=== PATIENT | male | born 1965 | race Hispanic/Latino ===

== ENCOUNTER 2018-12-23 11:55 | Inpatient (IN) | payer SELFPAY ==
[2018-12-23] MEDS ORDERED: Acetaminophen 500 MG TAB ONE (12:40)
[2018-12-23] MEDS ORDERED: Ondansetron PF 4 MG/2 ML Vial ONE (12:41)
[2018-12-23 12:48] LABS: Mean Corpuscular HGB CONC 35.2 g/dL (32.0-36.0); Mean Corpuscular Hemoglobin 29.4 pg (27.0-31.0); Mean Corpuscular Volume 83.7 fL (78.0-98.0); Mean Platelet Volume 9.6 fL (7.4-10.4); Platelet Count 196 thou/uL (130-400); RBC Distribution Width 13.6 % (11.5-14.5); Red Blood Cell (RBC) Count 4.09 mill/uL (4.70-6.10)
[2018-12-23 13:02] LABS: ALT (SGPT) 56 U/L (8-55); AST (SGOT) 85 U/L (5-34); Albumin 2.9 g/dL (3.5-5.0); Alkaline Phosphatase 188 U/L (40-150); Anion Gap 12 mmol/L (10-20); BUN (Urea Nitrogen) 47 mg/dL (8.4-25.7); Bilirubin, Total 1.1 mg/dL (0.2-1.2); Calc. Creatinine Clearance 0 mL/min (70-130); Calcium 7.9 mg/dL (7.8-10.44); Carbon Dioxide 23 mmol/L (22-29); Chloride 94 mmol/L (98-107); Estimated GFR-MDRD 26; Globulin 4.3 g/dL (2.4-3.5); Glucose 163 mg/dL (70-105); Potassium 3.7 mmol/L (3.5-5.1); Protein, Total 7.2 g/dL (6.0-8.3); Sodium 125 mmol/L (136-145)
[2018-12-23] MEDS ORDERED: Piperacillin/Tazobactam 4.5 GM VIAL ONE (13:20)
[2018-12-23 13:21] LABS: Band 15 % (5-11); Large Platelets SLIGHT; Lymphocytes 1 % (21-51); MDiff Complete? YES; Monocytes 2 % (0-10); Neutrophil 82 % (42-75); Platelet Morphology Comment Appears Adequate
--- NOTE | 2018-12-23 13:28 | RAD ---
SINGLE VIEW OF THE CHEST: Comparison: None. History: Diarrhea for the past 8 days, fever. FINDINGS: Single view of the chest shows a normal sized cardiomediastinal silhouette. There is no evidence of c onsolidation, mass, or pleural effusion. The bones are unremarkable. IMPRESSION: No evidence of acute cardiopulmonary disease. POS: [facility]
[2018-12-23] MEDS ORDERED: Vancomycin HCl 1.5 GM in Sodium Chloride 0.9% 250 ML 300 ML IVPB ONE (13:45)
[2018-12-23] MEDS ORDERED: Dextrose 50% Abboject 50 ML SYRINGE SLOW IVP PRN (15:18)
[2018-12-23] MEDS ORDERED: Dextrose 5% in Water 1,000 ML IV PRN (15:18)
[2018-12-23] MEDS ORDERED: Zolpidem Tartrate 5 MG TAB PO PRN (15:18)
[2018-12-23] MEDS ORDERED: Acetaminophen 325 MG TAB PO PRN (15:18)
[2018-12-23 15:43] LABS: Bilirubin Negative (Negative); Blood, Urine Large (Negative); Clarity CLOUDY (Clear); Glucose, Urine (Dipstick) Negative (Negative); Leukocyte Moderate (Negative); Nitrite Negative (Negative); Protein, Urine (Dipstick) 30 mg/dL (Neg-Trace); Specific Gravity, Urine 1.015 (1.002-1.036); Urobilinogen 0.2 mg/dL (0.2-1.0)
[2018-12-23 15:48] LABS: Hyaline Casts/LPF 4-6 HYALINE CAST LPF (0-3 Hyaline); Pathc Cast-AUWi Flag 0.95 (0-2.49); Squamous Epithelial 0-3 HPF (0-3)
[2018-12-23 15:49] LABS: Yeast-AUWi Flag 109.6 (0-25.0)
--- NOTE | 2018-12-23 15:56 | HP ---
PRIMARY CARE PROVIDER: [facility]. The patient referred to [facility] by [facility] [place] [facility] for diarrhea, acute kidney injury. The patient has had diarrhea for 7 days. He has had some trouble feeling weak and faint. He states he feels better now. His last episode of diarrhea was 9:30 this morning. Diarrhea episodes usually occur post meals. He denies abdominal pain, nausea, vomiting, fevers, sweats, or chills. PAST MEDICAL HISTORY: His only past medical history is diabetes mellitus, type 2. MEDICATIONS: He takes metformin 500 mg twice a day. ALLERGIES: HE HAS NO KNOWN DRUG ALLERGIES. PAST SURGICAL HISTORY: He has had surgeries to trauma on one finger. FAMILY HISTORY: His mother was . She had diabetes. SOCIAL HISTORY: . Full code status. , next of kin. He smokes 2 cigarettes a day. Drinks an occasional beer. No illicit drugs. REVIEW OF SYSTEMS: GENERAL: See present illness. No fainting. No headache. EYES: No double vision, blurred vision, or flashing of lights. EAR, NOSE, AND THROAT: No ear pain or drainage no nose bleeding. No trouble swallowing. CARDIAC: No chest pain, paroxysmal nocturnal dyspnea, or orthopnea. RESPIRATIONS: No cough, wheezing, or asthma. GASTROINTESTINAL: See present illness. No blood in his stools. GENITOURINARY: No hematuria or dysuria. MUSCULOSKELETAL: No pain or swelling in his arms or legs. NEUROLOGICAL: No strokes, seizures, or focal weakness. PSYCHIATRIC: No anxiety or depression. SKIN: No bruising, bleeding, or rash. HEME/LYMPH: No tender or swollen lymph nodes under his arms, neck, or groin. PHYSICAL EXAMINATION: GENERAL: He is an alert, pleasant, cooperative gentleman. VITAL SIGNS: Blood pressure 119/89, pulse 104, respirations 24, and temperature initially 102.1. HEAD, EYES, EARS, NOSE, AND THROAT: Revealed pupils are equal, round, and reactive to light. Extraocular movements are intact. Sclerae are white. Tympanic membranes are clear. Nose is clear. Oral mucous membranes are dry. NECK: No jugular venous distention, adenopathy, thyromegaly, or bruits. CHEST: Clear to auscultation and percussion. HEART: Had a regular rate and rhythm. First and second heart sounds are clear. There are no appreciated murmurs or gallops. ABDOMEN: Soft. Bowel sounds are normal. There is no hepatosplenomegaly. No mass. No rebound. No bruits. EXTREMITIES: Reveal no cyanosis, clubbing, or edema. PULSES: Carotid, radial, femoral, and dorsalis pedis pulses are intact. SKIN: Warm and dry without bruises or rash. HEME/LYMPH: No tender or swollen lymph nodes in the axilla, inguinal, or cervical area. IMAGING DATA: Chest x-ray; no cardiomegaly, CHF, or infiltrate reviewed by me. EKG, sinus tachycardia. No acute ST-T abnormality reviewed by me. LABORATORY DATA: CBC, remarkable, white count of 25.8 with marked left shift, hemoglobin 12.0, and platelet count of 196,000. Sodium 125, potassium 3.7, CO2 of 23, BUN 47, creatinine 2.61, blood sugar 163, bilirubin 1.1, AST 85, ALT 56, and alkaline phosphatase 188. ADMITTING DIAGNOSES: 1. Acute kidney injury. 2. Diabetes mellitus, type 2. 3. Leukocytosis. 4. Diarrhea. PLAN: 1. Accu-Cheks. 2. Hold metformin due to increased creatinine. 3. IV fluids. 4. Monitor BUN, creatinine, and CBC. 5. Stool studies. Blood cultures have been drawn at this point since he is feeling better, I am going to withhold any specific treatment. He will be placed in the hospital on observation basis. If he gets worse, he will be treated appropriately. As I said, we have stool studies in progress. Q.4 hours Accu-Cheks will be done with sliding scale and blood cultures were ordered. Job ID: [id number]
[2018-12-23 16:00] LABS: Bacteria/HPF 2+ HPF (None Seen); Yeast-All Forms None Seen HPF (None Seen)
[2018-12-23 17:30] VITALS: BMI 27.1
[2018-12-23] MEDS: Sodium Chloride 0.9% 1,000 ML IV SCH (18:00)
[2018-12-23] MEDS ORDERED: Heparin 1,000 UNITS/ML VIAL ONE (20:39)
[2018-12-24] MEDS: Ondansetron ODT 4 MG TAB PO PRN (00:35)
[2018-12-24] MEDS: Sodium Chloride 0.9% 1,000 ML IV SCH ×4 (00:40→17:00)
[2018-12-24 05:34] LABS: Anion Gap 10 mmol/L (10-20); BUN (Urea Nitrogen) 57 mg/dL (8.4-25.7); Calc. Creatinine Clearance 39 mL/min (70-130); Calcium 7.1 mg/dL (7.8-10.44); Carbon Dioxide 20 mmol/L (22-29); Chloride 104 mmol/L (98-107); Estimated GFR-MDRD 30; Glucose 144 mg/dL (70-105); Potassium 4.1 mmol/L (3.5-5.1); Sodium 130 mmol/L (136-145)
[2018-12-24 06:04] LABS: #Monocytes 1.1 thou/uL (0.11-0.59); #Neutrophils 9.6 thou/uL (1.40-6.50); %Basophils 0.1 % (0.0-1.0); %Eosinophils 0.1 % (0.0-10.0); %Lymphocytes 8.5 % (21.0-51.0); %Monocytes 9.4 % (0.0-10.0); %Neutrophils 81.9 % (42.0-75.0); Hemoglobin 8.5 g/dL (14.0-18.0); Mean Corpuscular HGB CONC 32.3 g/dL (32.0-36.0); Mean Corpuscular Hemoglobin 27.9 pg (27.0-31.0); Mean Corpuscular Volume 86.1 fL (78.0-98.0); Mean Platelet Volume 9.3 fL (7.4-10.4); Platelet Count 119 thou/uL (130-400); RBC Distribution Width 13.3 % (11.5-14.5); Red Blood Cell (RBC) Count 3.04 mill/uL (4.70-6.10); White Blood Cell (WBC) Count 11.8 thou/uL (4.8-10.8)
[2018-12-24] MEDS ORDERED: cefTRIAXone\\ROCEPHIN 2 GM in Sodium Chloride 0.9% 100 ML IVPB SCH (11:00)
--- NOTE | 2018-12-24 11:05 | PDOC.PN ---
- Subjective Encounter Start Date: 12/24/18 Encounter Start Time: 11:03 Subjective: Patient complaining of hiccups since last night. Otherwise no complaints. -: Denies any fevers. No chest pain or sob. No abdominal pain. Diarrhea has -: improved. No dysuria or hematuria. Denies lightheadedness/dizziness. - Objective Resuscitation Status - Order Detail: 12/23/18 15:15 Resuscitation Status Routine Resuscitation Status: FULL: Full Resuscitation Vital Signs & Weight: Vital Signs (12 hours) Temp Pulse Resp BP Pulse Ox 12/24/18 07:34 99.1 F 86 16 123/79 98 12/24/18 03:30 98.6 F 82 20 119/70 97 12/23/18 23:07 99.7 F H 104 H 20 123/85 98 Weight Weight 163 lb 6.4 oz I&O: 12/23/18 12/24/18 12/25/18 06:59 06:59 06:59 Intake Total 2165 Output Total 700 Balance 1465 Result Diagrams: 12/24/18 05:41 12/24/18 04:59 Additional Labs: Accuchecks 12/23/18 12/23/18 12/23/18 20:36 16:37 12:38 POC Glucose 132 H 117 H 150 H Phys Exam - Physical Examination Constitutional: NAD HEENT: PERRLA, oral pharynx no lesions Neck: no nodes, supple, full ROM Respiratory: clear to auscultation bilateral Cardiovascular: RRR Gastrointestinal: soft, non-tender, no distention, positive bowel sounds Musculoskeletal: no edema, pulses present Neurological: non-focal, normal sensation, moves all 4 limbs Psychiatric: normal affect, A&O x 3 Skin: no rash, normal turgor Dx/Plan (1) Sepsis secondary to UTI Code(s): A41.9 - SEPSIS, UNSPECIFIED ORGANISM; N39.0 - URINARY TRACT INFECTION, SITE NOT SPECIFIED Status: Acute Plan: urine cx and blood cx positive for e. coli. Started on Rocephin 2 g IV Q24 hrs. Converted to inpatient status. (2) Diabetes Code(s): E11.9 - TYPE 2 DIABETES MELLITUS WITHOUT COMPLICATIONS Status: Acute Plan: Continue ISS. Hold metformin given RUPERT. (3) RUPERT (acute kidney injury) Code(s): N17.9 - ACUTE KIDNEY FAILURE, UNSPECIFIED Status: Acute Plan: Slight improvement in Cr. BUN elevated. No sign of bleeding. Continue IVF fluids and monitor renal function. Consider renal US if no improvement +/- nephrology consult. (4) Anemia Code(s): D64.9 - ANEMIA, UNSPECIFIED Status: Acute Plan: Stool occult negative x 2. No hematuria or hematemesis. Possibly dilutional. Continue to monitor. - Plan cont current plan of care, continue antibiotics, out of bed/ambulate, DVT proph w/SCDs Discussed with Dr. Julian who agrees with plan as above. -: Check orthostatic BP. * .
[2018-12-24 11:11] LABS: Hemoglobin 8.7 g/dL (14.0-18.0)
[2018-12-24] MEDS: Benzonatate 100 MG CAP PO PRN (22:36)
[2018-12-24] MEDS ORDERED: guaiFENesin/DM ER PO SCH (22:45)
[2018-12-25] MEDS: Sodium Chloride 0.9% 1,000 ML IV SCH ×5 (00:58→23:39)
[2018-12-25 06:35] LABS: Anion Gap 11 mmol/L (10-20); BUN (Urea Nitrogen) 83 mg/dL (8.4-25.7); Calc. Creatinine Clearance 39 mL/min (70-130); Calcium 7.1 mg/dL (7.8-10.44); Carbon Dioxide 15 mmol/L (22-29); Chloride 108 mmol/L (98-107); Estimated GFR-MDRD 31; Glucose 182 mg/dL (70-105); Potassium 4.3 mmol/L (3.5-5.1); Sodium 130 mmol/L (136-145)
[2018-12-25 06:42] LABS: #Eosinphils 0.1 thou/uL (0.0-0.7); #Lymphocytes 0.9 thou/uL (1.20-3.40); #Monocytes 0.7 thou/uL (0.11-0.59); #Neutrophils 8.3 thou/uL (1.40-6.50); %Basophils 0.3 % (0.0-1.0); %Eosinophils 0.5 % (0.0-10.0); %Lymphocytes 9.3 % (21.0-51.0); %Monocytes 7.3 % (0.0-10.0); %Neutrophils 82.6 % (42.0-75.0); Mean Corpuscular HGB CONC 33.1 g/dL (32.0-36.0); Mean Corpuscular Hemoglobin 28.1 pg (27.0-31.0); Mean Platelet Volume 9.5 fL (7.4-10.4); Platelet Count 159 thou/uL (130-400); RBC Distribution Width 13.5 % (11.5-14.5); Red Blood Cell (RBC) Count 2.13 mill/uL (4.70-6.10)
[2018-12-25] MEDS ORDERED: hydrALAZINE 20 MG/ML VIAL SLOW IVP PRN (07:44)
[2018-12-25] MEDS ORDERED: Eucerin (Mineral Oil/Petrolatum,White) 30 gm Jar TOP PRN (07:44)
[2018-12-25] MEDS ORDERED: Senokot S 8.6-50 MG TAB PO PRN (07:44)
[2018-12-25] MEDS ORDERED: Artificial Tears 18 DROP/0.9 ML EA EYE PRN (07:44)
[2018-12-25] MEDS ORDERED: Loperamide HCl 2 MG CAP PO PRN (07:44)
[2018-12-25] MEDS ORDERED: Calcium Carbonate 500 MG ChewTAB PO PRN (07:44)
[2018-12-25] MEDS ORDERED: Sodium Chloride 0.65% Nasal 44 ML BOT EA NARE PRN (07:44)
[2018-12-25] MEDS ORDERED: Cepastat Lozenges 1 LOZ PO PRN (07:44)
[2018-12-25] MEDS ORDERED: Diabetic Tussin 200 MG/10 ML UDCUP PO PRN (07:44)
[2018-12-25] MEDS ORDERED: HYDROcodone/Acetaminophen 5/325 mg Tablet PO PRN (07:44)
[2018-12-25] MEDS ORDERED: Loratadine 10 MG TAB PO PRN (07:44)
[2018-12-25] MEDS ORDERED: Ondansetron PF 4 MG/2 ML Vial IVP PRN (07:44)
[2018-12-25] MEDS ORDERED: Acetaminophen 500 MG TAB PO PRN (07:44)
[2018-12-25] MEDS: Ondansetron ODT 4 MG TAB PO PRN (08:33)
[2018-12-25] MEDS: guaiFENesin/DM ER PO SCH ×2 (08:33→20:35)
[2018-12-25] MEDS: Saccharomyces boulardii 250 MG CAP PO SCH (08:33)
[2018-12-25 08:48] LABS: Iron 48 ug/dL (65-175); Iron Binding Capacity, Total 128 mcg/dL (261-462)
--- NOTE | 2018-12-25 09:46 | PDOC.PN ---
- Subjective Encounter Start Date: 12/25/18 Encounter Start Time: 09:00 Patient seen and examined. No new complaints. No overnight events - Objective Resuscitation Status - Order Detail: 12/23/18 15:15 Resuscitation Status Routine Resuscitation Status: FULL: Full Resuscitation MAR Reviewed: Yes Vital Signs & Weight: Vital Signs (12 hours) Temp Pulse Pulse Resp BP BP BP 12/25/18 09:23 98.5 F 100 20 111/69 12/25/18 07:45 98.3 F 95 20 111/72 12/25/18 07:26 12/25/18 04:00 98.5 F 95 20 100/64 12/25/18 00:00 98.4 F 82 20 103/66 Pulse Ox 12/25/18 09:23 99 12/25/18 07:45 98 12/25/18 07:26 98 12/25/18 04:00 97 12/25/18 00:00 99 Weight Weight 163 lb 6.4 oz I&O: 12/24/18 12/25/18 12/26/18 06:59 06:59 06:59 Intake Total 2165 2073 0 Output Total 700 Balance 1465 2073 0 Result Diagrams: 12/25/18 06:00 12/25/18 06:00 Additional Labs: Accuchecks 12/25/18 12/24/18 12/24/18 04:17 20:11 10:56 POC Glucose 189 H 188 H 176 H 12/23/18 16:37 POC Glucose 117 H Phys Exam - Physical Examination Constitutional: NAD HEENT: PERRLA, moist MMs, sclera anicteric Neck: no JVD, supple Respiratory: no wheezing, no rales, no rhonchi Cardiovascular: RRR, no significant murmur, no rub Gastrointestinal: soft, non-tender, no distention, positive bowel sounds Musculoskeletal: no edema, pulses present Neurological: non-focal, normal sensation, moves all 4 limbs Lymphatic: no nodes Psychiatric: normal affect, A&O x 3 Skin: no rash, normal turgor Dx/Plan (1) Acute worsening of stage 3 chronic kidney disease Code(s): N18.3 - CHRONIC KIDNEY DISEASE, STAGE 3 (MODERATE) Status: Acute (2) Bacteremia, escherichia coli Code(s): R78.81 - BACTEREMIA Status: Acute (3) Hyponatremia Code(s): E87.1 - HYPO-OSMOLALITY AND HYPONATREMIA Status: Acute (4) Sepsis secondary to UTI Code(s): A41.9 - SEPSIS, UNSPECIFIED ORGANISM; N39.0 - URINARY TRACT INFECTION, SITE NOT SPECIFIED Status: Acute (5) Sepsis with acute organ dysfunction Code(s): A41.9 - SEPSIS, UNSPECIFIED ORGANISM; R65.20 - SEVERE SEPSIS WITHOUT SEPTIC SHOCK Status: Acute (6) Anemia, normocytic normochromic Code(s): D64.9 - ANEMIA, UNSPECIFIED Status: Chronic (7) Diabetes type 2, controlled Code(s): E11.9 - TYPE 2 DIABETES MELLITUS WITHOUT COMPLICATIONS Status: Chronic - Plan cont current plan of care, continue antibiotics * medication reviewed as below * symptomatic treatment * change to meropenam * transfuse 1 unit prbc * anemia work up * repeat labs tomorrow. Review of Systems - Review of Systems ENT: negative: Ear Pain, Ear Discharge, Nose Pain, Nose Discharge, Nose Congestion, Mouth Pain, Mouth Swelling, Throat Pain, Throat Swelling, Other Respiratory: negative: Cough, Dry, Shortness of Breath, Hemoptysis, SOB with Excertion, Pleuritic Pain, Sputum, Wheezing Cardiovascular: negative: chest pain, palpitations, orthopnea, paroxysmal nocturnal dyspnea, edema, light headedness, other Gastrointestinal: negative: Nausea, Vomiting, Abdominal Pain, Diarrhea, Constipation, Melena, Hematochezia, Other Genitourinary: negative: Dysuria, Frequency, Incontinence, Hematuria, Retention , Other Musculoskeletal: negative: Neck Pain, Shoulder Pain, Arm Pain, Back Pain, Hand Pain, Leg Pain, Foot Pain, Other - Medications/Allergies Allergies/Adverse Reactions: Allergies Allergy/AdvReac Type Severity Reaction Status Date / Time No Known Allergies Allergy Unverified 12/23/18 13:41 Medications: Current Medications Acetaminophen (Tylenol) 650 mg PO Q4H PRN PRN Reason: Headache/Fever/Mild Pain (1-3) Last Admin: 12/24/18 00:35 Dose: 650 mg Acetaminophen (Tylenol) 650 mg PO Q6H PRN PRN Reason: Mild Pain (1-3) Hydrocodone Bitart/Acetaminophen ([place] 5/325) 1 tab PO Q4H PRN PRN Reason: Moderate Pain (4-6) Artificial Tears (Tears Naturale) 2 drop EA EYE PRN PRN PRN Reason: Dry Eyes Benzonatate (Tessalon) 100 mg PO TIDPRN PRN PRN Reason: Cough Last Admin: 12/24/18 22:36 Dose: 100 mg Calcium Carbonate (Tums) 1,000 mg PO Q4H PRN PRN Reason: Heartburn or Indigestion Dextrose/Water (Dextrose 50%) 25 gm SLOW IVP PRN PRN PRN Reason: Hypoglycemia Glucagon (Glucagon) 1 mg IM PRN PRN PRN Reason: Hypoglycemia Guaifenesin (Robitussin Sf) 200 mg PO Q4H PRN PRN Reason: Cough Guaifenesin/Dextromethorphan (Mucinex Dm) 1 tab PO Q12HR [facility] Last Admin: 12/25/18 08:33 Dose: 1 tab Hydralazine HCl (Apresoline) 10 mg SLOW IVP Q4H PRN PRN Reason: SBP > 180 and HR < 70 Dextrose/Water (D5w) 1,000 mls @ 0 mls/hr IV .Q0M PRN PRN Reason: Hypoglycemia Sodium Chloride (Normal Saline 0.9%) 1,000 mls @ 100 mls/hr IV .Q10H [facility] Last Admin: 12/25/18 08:33 Dose: 1,000 mls Meropenem 500 mg/ Sodium (Chloride) 100 mls @ 200 mls/hr IVPB 0000,0800,1600 [facility] Insulin Human Lispro (Humalog) 0 units SC .MILD SLIDING SCALE PRN PRN Reason: Mild Correctional Scale Loperamide HCl (Imodium) 2 mg PO PRN PRN PRN Reason: Diarrhea/Loose Stools Loratadine (Claritin) 10 mg PO DAILYPRN PRN PRN Reason: Sinus Symptoms Mineral Oil/White Petrolatum (Eucerin Cream) 0 gm TOP BIDPRN PRN PRN Reason: Dry Skin Ondansetron HCl (Zofran Odt) 4 mg PO Q6H PRN PRN Reason: Nausea/Vomiting Last Admin: 12/25/18 08:33 Dose: 4 mg Ondansetron HCl (Zofran) 4 mg IVP Q6H PRN PRN Reason: Nausea/Vomiting Pantoprazole Sodium (Protonix) 40 mg PO DAILY [facility] Last Admin: 12/25/18 08:33 Dose: 40 mg Saccharomyces Boulardii (Florastor) 250 mg PO DAILY [facility] Last Admin: 12/25/18 08:33 Dose: 250 mg Senna/Docusate Sodium (Senokot S) 2 tab PO BID PRN PRN Reason: Constipation Sodium Chloride ([place] Nasal [place] 0.65%) 0 ml EA NARE QIDPRN PRN PRN Reason: Nasal Congestion Throat Lozenges (Cepastat Lozenges) 1 len PO Q2H PRN PRN Reason: Sore Throat Zolpidem Tartrate (Ambien) 5 mg PO HSPRN PRN PRN Reason: Insomnia
[2018-12-25] MEDS: HumaLOG 300 UNITS/3 ML VIAL SC PRN ×3 (13:18→20:37)
[2018-12-25] MEDS: Meropenem 500 MG in Sodium Chloride 0.9% 100 ML IVPB SCH ×2 (16:26→23:40)
[2018-12-25 16:32] LABS: Creatinine, Urine 43.61 mg/dL (63-166)
[2018-12-25] MEDS: Benzonatate 100 MG CAP PO PRN (20:35)
[2018-12-26 06:28] LABS: #Eosinphils 0.1 thou/uL (0.0-0.7); #Monocytes 0.8 thou/uL (0.11-0.59); #Neutrophils 8.2 thou/uL (1.40-6.50); %Basophils 0.3 % (0.0-1.0); %Monocytes 8.2 % (0.0-10.0); %Neutrophils 80.6 % (42.0-75.0); Hemoglobin 6.3 g/dL (14.0-18.0); Mean Corpuscular HGB CONC 32.8 g/dL (32.0-36.0); Mean Corpuscular Hemoglobin 28.1 pg (27.0-31.0); Mean Corpuscular Volume 85.5 fL (78.0-98.0); Mean Platelet Volume 8.7 fL (7.4-10.4); Platelet Count 171 thou/uL (130-400); RBC Distribution Width 13.5 % (11.5-14.5); Red Blood Cell (RBC) Count 2.24 mill/uL (4.70-6.10); White Blood Cell (WBC) Count 10.1 thou/uL (4.8-10.8)
[2018-12-26 06:39] LABS: Anion Gap 10 mmol/L (10-20); BUN (Urea Nitrogen) 66 mg/dL (8.4-25.7); BUN/Creatinine Ratio 31.13; Calc. Creatinine Clearance 42 mL/min (70-130); Calcium 7.4 mg/dL (7.8-10.44); Carbon Dioxide 17 mmol/L (22-29); Chloride 115 mmol/L (98-107); Estimated GFR-MDRD 33; Glucose 132 mg/dL (70-105); Potassium 4.1 mmol/L (3.5-5.1); Sodium 138 mmol/L (136-145)
[2018-12-26 08:08] LABS: ALT (SGPT) 37 U/L (8-55); AST (SGOT) 39 U/L (5-34); Alkaline Phosphatase 186 U/L (40-150); Bilirubin, Direct 0.5 mg/dL (0.1-0.3); Bilirubin, Total 0.6 mg/dL (0.2-1.2)
[2018-12-26] MEDS: Saccharomyces boulardii 250 MG CAP PO SCH (08:19)
[2018-12-26] MEDS: guaiFENesin/DM ER PO SCH ×2 (08:19→20:37)
[2018-12-26] MEDS: Meropenem 500 MG in Sodium Chloride 0.9% 100 ML IVPB SCH ×2 (08:19→15:33)
[2018-12-26 08:30] LABS: HBCM Index 0.12 S/CO (0-0.79); HBSAg Index 0.38 S/CO (0-0.99); Hep A IgM AB Non-Reactive (NonReactive); Hep B Surf Ag Non-Reactive S/CO (NonReactive); Hep C IgG Ab Non-Reactive (NonReactive); Hepatitis B Core IgM Abs Non-Reactive (NonReactive)
--- NOTE | 2018-12-26 09:17 | ULT ---
ULTRASOUND ABDOMEN COMPLETE: Date: 12/26/18 INDICATION: Cirrhosis, renal failure. TECHNIQUE: Moya-scale ultrasound evaluation of the liver, gallbladder, spleen, pancreas, common bile duct, kidne ys, abdominal aorta, and inferior vena cava (IVC). FINDINGS: There is coarsening of the hepatic echotexture. Mild nodularity of the hepatic contour is present and there is perihepatic ascites. Gallbladder wall is thickened. There is pericholecystic edema. Low lev el echoes of the gallbladder may be related to gravel-like cholelithiasis and/or sludge. Common duct measures 6 mm, which is mildly enlarged. Incidental note of bilateral pleural fluid. No overt hydrone phrosis. Pancreas not reliably assessed for comment. The pump tester reports Tuttle's sign as negativ e. No focal splenic abnormality. Abdominal aorta is largely obscured from view for comment. IMPRESSION: 1. Gallbladder wall thickening and pericholecystic edema, which could relate to cholecystitis versus sequelae from hyperproteinemia. Correlate with clinical exam. 2. Cirrhotic morphology of the liver with ascites. 3. Mild dilatation of common duct. Correlate with biliary laboratory values. 4. Incidental note of pleural fluid. POS: [facility]
--- NOTE | 2018-12-26 10:16 | PDOC.PN ---
- Subjective Encounter Start Date: 12/26/18 Encounter Start Time: 09:40 Patient seen and examined. No new complaints. No overnight events - Objective Resuscitation Status - Order Detail: 12/23/18 15:15 Resuscitation Status Routine Resuscitation Status: FULL: Full Resuscitation MAR Reviewed: Yes Vital Signs & Weight: Vital Signs (12 hours) Temp Pulse Pulse Resp BP BP BP 12/26/18 10:00 98.3 F 86 20 123/76 12/26/18 08:17 12/26/18 07:25 98.6 F 90 18 130/78 12/26/18 04:00 98.2 F 89 20 113/67 12/26/18 00:00 98.2 F 102 H 20 161/78 H Pulse Ox 12/26/18 10:00 99 12/26/18 08:17 98 12/26/18 07:25 98 12/26/18 04:00 98 12/26/18 00:00 100 Weight Admit Weight 163 lb 6.4 oz Weight 163 lb 6.4 oz I&O: 12/25/18 12/26/18 12/27/18 06:59 06:59 06:59 Intake Total 2073 4048 0 Balance 2073 4048 0 Result Diagrams: 12/26/18 06:16 12/26/18 06:16 Additional Labs: Accuchecks 12/26/18 12/25/18 12/25/18 04:32 19:44 16:28 POC Glucose 136 H 239 H 198 H 12/25/18 11:23 POC Glucose 254 H Radiology Reviewed by me: Yes (abdomen US) Phys Exam - Physical Examination Constitutional: NAD HEENT: PERRLA, moist MMs, sclera anicteric Neck: no JVD, supple Respiratory: no wheezing, no rales, no rhonchi Cardiovascular: RRR, no significant murmur, no rub Gastrointestinal: soft, non-tender, no distention, positive bowel sounds Musculoskeletal: no edema, pulses present Neurological: non-focal, normal sensation Lymphatic: no nodes Psychiatric: normal affect, A&O x 3 Skin: no rash, normal turgor Dx/Plan (1) Acute worsening of stage 3 chronic kidney disease Code(s): N18.3 - CHRONIC KIDNEY DISEASE, STAGE 3 (MODERATE) Status: Acute (2) Bacteremia, escherichia coli Code(s): R78.81 - BACTEREMIA Status: Acute (3) Hyponatremia Code(s): E87.1 - HYPO-OSMOLALITY AND HYPONATREMIA Status: Acute (4) Sepsis secondary to UTI Code(s): A41.9 - SEPSIS, UNSPECIFIED ORGANISM; N39.0 - URINARY TRACT INFECTION, SITE NOT SPECIFIED Status: Acute (5) Sepsis with acute organ dysfunction Code(s): A41.9 - SEPSIS, UNSPECIFIED ORGANISM; R65.20 - SEVERE SEPSIS WITHOUT SEPTIC SHOCK Status: Acute (6) Anemia, normocytic normochromic Code(s): D64.9 - ANEMIA, UNSPECIFIED Status: Chronic (7) Diabetes type 2, controlled Code(s): E11.9 - TYPE 2 DIABETES MELLITUS WITHOUT COMPLICATIONS Status: Chronic (8) Alcoholic cirrhosis of liver Code(s): K70.30 - ALCOHOLIC CIRRHOSIS OF LIVER WITHOUT ASCITES Status: Chronic - Plan cont current plan of care, continue antibiotics * his H & H has not improved, will consult GI * US done and c/w cirrhosis * medication reviewed as below * symptomatic treatment * continue meropenam * repeat labs with culture tomorrow. Review of Systems - Review of Systems ENT: negative: Ear Pain, Ear Discharge, Nose Pain, Nose Discharge, Nose Congestion, Mouth Pain, Mouth Swelling, Throat Pain, Throat Swelling, Other Respiratory: negative: Cough, Dry, Shortness of Breath, Hemoptysis, SOB with Excertion, Pleuritic Pain, Sputum, Wheezing Cardiovascular: negative: chest pain, palpitations, orthopnea, paroxysmal nocturnal dyspnea, edema, light headedness, other Gastrointestinal: negative: Nausea, Vomiting, Abdominal Pain, Diarrhea, Constipation, Melena, Hematochezia, Other Genitourinary: negative: Dysuria, Frequency, Incontinence, Hematuria, Retention , Other Musculoskeletal: negative: Neck Pain, Shoulder Pain, Arm Pain, Back Pain, Hand Pain, Leg Pain, Foot Pain, Other - Medications/Allergies Allergies/Adverse Reactions: Allergies Allergy/AdvReac Type Severity Reaction Status Date / Time No Known Allergies Allergy Unverified 12/23/18 13:41 Medications: Current Medications Acetaminophen (Tylenol) 650 mg PO Q4H PRN PRN Reason: Headache/Fever/Mild Pain (1-3) Last Admin: 12/24/18 00:35 Dose: 650 mg Acetaminophen (Tylenol) 650 mg PO Q6H PRN PRN Reason: Mild Pain (1-3) Hydrocodone Bitart/Acetaminophen ([place] 5/325) 1 tab PO Q4H PRN PRN Reason: Moderate Pain (4-6) Artificial Tears (Tears Naturale) 2 drop EA EYE PRN PRN PRN Reason: Dry Eyes Benzonatate (Tessalon) 100 mg PO TIDPRN PRN PRN Reason: Cough Last Admin: 12/25/18 20:35 Dose: 100 mg Calcium Carbonate (Tums) 1,000 mg PO Q4H PRN PRN Reason: Heartburn or Indigestion Dextrose/Water (Dextrose 50%) 25 gm SLOW IVP PRN PRN PRN Reason: Hypoglycemia Glucagon (Glucagon) 1 mg IM PRN PRN PRN Reason: Hypoglycemia Guaifenesin (Robitussin Sf) 200 mg PO Q4H PRN PRN Reason: Cough Guaifenesin/Dextromethorphan (Mucinex Dm) 1 tab PO Q12HR [facility] Last Admin: 12/26/18 08:19 Dose: 1 tab Hydralazine HCl (Apresoline) 10 mg SLOW IVP Q4H PRN PRN Reason: SBP > 180 and HR < 70 Dextrose/Water (D5w) 1,000 mls @ 0 mls/hr IV .Q0M PRN PRN Reason: Hypoglycemia Meropenem 500 mg/ Sodium (Chloride) 100 mls @ 200 mls/hr IVPB 0000,0800,1600 [facility] Last Admin: 12/26/18 08:19 Dose: 100 mls Insulin Human Lispro (Humalog) 0 units SC .MILD SLIDING SCALE PRN PRN Reason: Mild Correctional Scale Last Admin: 12/25/18 20:37 Dose: 3 unit Loperamide HCl (Imodium) 2 mg PO PRN PRN PRN Reason: Diarrhea/Loose Stools Loratadine (Claritin) 10 mg PO DAILYPRN PRN PRN Reason: Sinus Symptoms Mineral Oil/White Petrolatum (Eucerin Cream) 0 gm TOP BIDPRN PRN PRN Reason: Dry Skin Ondansetron HCl (Zofran Odt) 4 mg PO Q6H PRN PRN Reason: Nausea/Vomiting Last Admin: 12/25/18 08:33 Dose: 4 mg Ondansetron HCl (Zofran) 4 mg IVP Q6H PRN PRN Reason: Nausea/Vomiting Pantoprazole Sodium (Protonix) 40 mg PO DAILY [facility] Last Admin: 12/26/18 08:19 Dose: 40 mg Saccharomyces Boulardii (Florastor) 250 mg PO DAILY [facility] Last Admin: 12/26/18 08:19 Dose: 250 mg Senna/Docusate Sodium (Senokot S) 2 tab PO BID PRN PRN Reason: Constipation Sodium Chloride ([place] Nasal [place] 0.65%) 0 ml EA NARE QIDPRN PRN PRN Reason: Nasal Congestion Throat Lozenges (Cepastat Lozenges) 1 len PO Q2H PRN PRN Reason: Sore Throat Zolpidem Tartrate (Ambien) 5 mg PO HSPRN PRN PRN Reason: Insomnia
[2018-12-26] MEDS ORDERED: PROPOFOL 200 MG/20 ML VIAL ONE (16:28)
[2018-12-26] MEDS ORDERED: PROPOFOL 200 ML ONE (18:21)
[2018-12-26] MEDS ORDERED: Ketamine 50 MG/ML (10ML VIAL) ONE (18:21)
[2018-12-26] MEDS ORDERED: Ondansetron HCl/PF 4 MG/2 ML Vial IVP PRN (18:52)
[2018-12-26] MEDS ORDERED: Promethazine HCl 25 MG/ML VIAL IM PRN (18:52)
[2018-12-26] MEDS ORDERED: Promethazine HCl 25 MG/ML VIAL SLOW IVP PRN (18:52)
[2018-12-27] MEDS: Meropenem 500 MG in Sodium Chloride 0.9% 100 ML IVPB SCH ×4 (00:40→23:58)
--- NOTE | 2018-12-27 01:15 | OP ---
DATE OF PROCEDURE: 12/26/2018 OPERATIVE PROCEDURE: Esophagogastroduodenoscopy with biopsy. PREOPERATIVE DIAGNOSIS: A 53-year-old male with diabetes mellitus, chronic kidney disease presents with diarrhea. The patient has had stool studies, which came back negative for pathology. Also stool for fecal occult blood test is negative. However, he claims his stools are dark. Blood count has been dropping down slowly from 12 to 6 and 6.3. He has been transfused. The patient is undergoing EGD. POSTOPERATIVE DIAGNOSES: 1. Normal esophageal mucosa upper two-thirds. Over the distal esophagus, the patient was found to have what appears to be a small ulceration and he has esophageal erosions and esophagitis. 2. Gastric ulcer x3. Appears chronic and quite deep over the gastric antrum. At the time of endoscopy, there was no blood seen in the stomach or the duodenum. DESCRIPTION OF PROCEDURE: The patient was placed on his left lateral position and was given sedation by Anesthesia Department. A [employer] video gastroscope under direct passed down the oropharynx, past the GE junction into the stomach and subsequently into the descending duodenum. The duodenal bulb, descending duodenum, no pathology. The gastric mucosa was edematous, friable. There were 2 ulcerations seen. The ulcer appeared chronic and measured approximately about 1.5 cm. There was no bleeding seen. The fundus, cardia and gastric body, no pathology seen. The distal esophagus shows soft esophageal erosions. Also, there is a small nodule . Biopsy obtained from the gastric and gastric body. The stomach decompressed and the scope removed. RECOMMENDATION: 1. Protonix. 2. Serial H and H. 3. May consider doing a colonoscopy in the next 24 to 48 hours as the EGD showed no bleeding. Job ID: [id number]
[2018-12-27 07:56] LABS: #Eosinphils 0.2 thou/uL (0.0-0.7); #Lymphocytes 1.6 thou/uL (1.20-3.40); #Monocytes 0.8 thou/uL (0.11-0.59); #Neutrophils 7.1 thou/uL (1.40-6.50); %Basophils 0.3 % (0.0-1.0); %Eosinophils 1.7 % (0.0-10.0); %Lymphocytes 16.5 % (21.0-51.0); %Monocytes 8.2 % (0.0-10.0); %Neutrophils 73.4 % (42.0-75.0); Hemoglobin 7.7 g/dL (14.0-18.0); Mean Corpuscular HGB CONC 33.4 g/dL (32.0-36.0); Mean Corpuscular Hemoglobin 29.1 pg (27.0-31.0); Mean Corpuscular Volume 86.9 fL (78.0-98.0); Mean Platelet Volume 8.6 fL (7.4-10.4); Platelet Count 245 thou/uL (130-400); RBC Distribution Width 13.3 % (11.5-14.5); Red Blood Cell (RBC) Count 2.64 mill/uL (4.70-6.10); White Blood Cell (WBC) Count 9.7 thou/uL (4.8-10.8)
[2018-12-27] MEDS: guaiFENesin/DM ER PO SCH ×2 (08:03→21:11)
[2018-12-27] MEDS: Saccharomyces boulardii 250 MG CAP PO SCH (08:03)
[2018-12-27 08:11] LABS: Anion Gap 10 mmol/L (10-20); BUN (Urea Nitrogen) 47 mg/dL (8.4-25.7); Calc. Creatinine Clearance 47 mL/min (70-130); Calcium 7.9 mg/dL (7.8-10.44); Carbon Dioxide 19 mmol/L (22-29); Chloride 116 mmol/L (98-107); Estimated GFR-MDRD 38; Glucose 121 mg/dL (70-105); Potassium 4.2 mmol/L (3.5-5.1); Sodium 141 mmol/L (136-145)
[2018-12-27 08:23] LABS: INR-International Normal Ratio 1.3; Prothrombin Time 15.8 SEC (12.0-14.7)
[2018-12-27] MEDS: HumaLOG 300 UNITS/3 ML VIAL SC PRN (12:44)
[2018-12-27] MEDS: Metoclopramide HCl 10 MG/2 ML VIAL IVP SCH ×2 (13:13→21:11)
--- NOTE | 2018-12-27 13:27 | PDOC.PN ---
- Subjective Encounter Start Date: 12/27/18 Encounter Start Time: 13:25 Patient seen and examined, no new issues or complaints, all questions answered. - Objective Resuscitation Status - Order Detail: 12/23/18 15:15 Resuscitation Status Routine Resuscitation Status: FULL: Full Resuscitation Vital Signs & Weight: Vital Signs (12 hours) Temp Pulse Resp BP BP Pulse Ox 12/27/18 11:13 98.4 F 86 16 129/80 98 12/27/18 08:15 98.3 F 89 16 125/83 96 12/27/18 07:30 96 12/27/18 05:41 98.4 F 74 18 130/82 97 Weight Admit Weight 163 lb 6.4 oz Weight 163 lb 6.4 oz I&O: 12/26/18 12/27/18 12/28/18 06:59 06:59 06:59 Intake Total 4048 1350 Balance 4048 1350 Result Diagrams: 12/27/18 07:26 12/27/18 07:26 Additional Labs: Accuchecks 12/27/18 12/27/18 12/26/18 11:14 05:40 20:49 POC Glucose 191 H 147 H 186 H 12/26/18 12/26/18 17:44 16:27 POC Glucose 124 H 108 Phys Exam - Physical Examination Constitutional: NAD HEENT: PERRLA, moist MMs, sclera anicteric Neck: no nodes, no JVD, supple Respiratory: no wheezing, no rales, no rhonchi Cardiovascular: RRR, no significant murmur, no rub Gastrointestinal: soft, non-tender, positive bowel sounds +mild fluid wave Musculoskeletal: pulses present, edema present (trace) Dx/Plan (1) Acute worsening of stage 3 chronic kidney disease Code(s): N18.3 - CHRONIC KIDNEY DISEASE, STAGE 3 (MODERATE) Status: Acute (2) Bacteremia, escherichia coli Code(s): R78.81 - BACTEREMIA Status: Acute (3) Sepsis with acute organ dysfunction Code(s): A41.9 - SEPSIS, UNSPECIFIED ORGANISM; R65.20 - SEVERE SEPSIS WITHOUT SEPTIC SHOCK Status: Acute (4) Alcoholic cirrhosis of liver Code(s): K70.30 - ALCOHOLIC CIRRHOSIS OF LIVER WITHOUT ASCITES Status: Chronic (5) Diabetes type 2, controlled Code(s): E11.9 - TYPE 2 DIABETES MELLITUS WITHOUT COMPLICATIONS Status: Chronic - Plan * cont abx * check KUB in AM * labs in AM * colonoscpy in 24-48hrs * case and plan d/w patient at [facility], he understood and agreed with this plan
--- NOTE | 2018-12-27 13:48 | PRG ---
DATE OF SERVICE: 12/27/2018 SUBJECTIVE: This is a 53-year-old Latin-[place] male, hospitalized because of anemia, urosepsis. The patient has had diarrhea over the last several days. The patient underwent stool testing, which all came back negative. Interestingly, stool for fecal occult blood came negative. However, the blood count has been dropping down slowly and he has been transfused. The patient has hiccups off and on. He complained of abdominal bloating and abdominal swelling. He has no abdominal pain. He has 2 stools today and stools are watery. Although, he has history of only social drinking. Abdominal sonogram shows findings of possible liver cirrhosis, the liver contour is irregular, and also he has some mild ascites. PHYSICAL EXAMINATION: GENERAL: Appears comfortable. VITAL SIGNS: Actually stable. Temperature 98.4 degrees Fahrenheit, pulse is 86, blood pressure 149/80. CARDIOVASCULAR SYSTEM: Within normal limits. LUNGS: Within normal limits. ABDOMEN: Abdomen is soft. Abdomen is nontender. LABORATORY DATA: From today. CBC; WBC 9700, hemoglobin 7.7, hematocrit 23, MCV 86.1, platelet count is 245,000. Chemistry panel; chloride is 116, bicarb is 19, BUN is coming down to 47, creatinine 1.88, sodium 141, potassium 4.2. Again, I went over the history with the patient through an diplomatic interpreter/translator. He had been drinking in the past before heavily. However, now he drinks only 2 to 3 beers. CLINICAL IMPRESSION: 1. Anemia, recent blood count. EGD showed gastric ulcer, nonbleeding. 2. Diarrhea, etiology unclear. 3. Chronic liver disease, most likely liver cirrhosis from alcohol abuse as his serologies negative. RECOMMENDATIONS: 1. Change diet to clear liquid diet. 2. We will plan for a colonoscopy tomorrow because of anemia. I did explain to him through the diplomatic interpreter/translator Amado. He is agreeable. I will plan for colonoscopy tomorrow. Job ID: [id number]
[2018-12-27] MEDS ORDERED: GoLYTELY 4,000 ml Bottle PO SCH (17:00)
[2018-12-28] MEDS: Metoclopramide HCl 10 MG/2 ML VIAL IVP SCH ×3 (06:00→21:09)
[2018-12-28] MEDS: guaiFENesin/DM ER PO SCH ×2 (07:55→20:20)
[2018-12-28] MEDS: Saccharomyces boulardii 250 MG CAP PO SCH (07:55)
[2018-12-28] MEDS: Meropenem 500 MG in Sodium Chloride 0.9% 100 ML IVPB SCH ×3 (08:02→23:42)
--- NOTE | 2018-12-28 09:24 | PDOC.PN ---
- Subjective Encounter Start Date: 12/28/18 Encounter Start Time: 09:22 Patient seen and examined, no new issues, all questions answered. - Objective Resuscitation Status - Order Detail: 12/23/18 15:15 Resuscitation Status Routine Resuscitation Status: FULL: Full Resuscitation Vital Signs & Weight: Vital Signs (12 hours) Temp Pulse Resp BP BP BP Pulse Ox 12/28/18 08:00 98 12/28/18 07:53 98.3 F 75 18 130/81 98 12/28/18 04:00 98.3 F 81 16 152/85 H 97 12/28/18 00:00 98.0 F 76 18 128/78 96 Weight Admit Weight 163 lb 6.4 oz Weight 163 lb 6.4 oz I&O: 12/27/18 12/28/18 12/29/18 06:59 06:59 06:59 Intake Total 1350 2800 Balance 1350 2800 Result Diagrams: 12/27/18 07:26 12/27/18 07:26 Additional Labs: Accuchecks 12/28/18 12/27/18 12/27/18 04:40 20:03 16:34 POC Glucose 117 H 153 H 130 H 12/27/18 11:14 POC Glucose 191 H Phys Exam - Physical Examination Constitutional: NAD HEENT: PERRLA, moist MMs, sclera anicteric Neck: no nodes, no JVD, supple Respiratory: no wheezing, no rales, no rhonchi Cardiovascular: RRR, no significant murmur, no rub Gastrointestinal: soft, non-tender, no distention, positive bowel sounds Musculoskeletal: pulses present, edema present (trace) Dx/Plan (1) Acute worsening of stage 3 chronic kidney disease Code(s): N18.3 - CHRONIC KIDNEY DISEASE, STAGE 3 (MODERATE) Status: Acute (2) Bacteremia, escherichia coli Code(s): R78.81 - BACTEREMIA Status: Acute (3) Sepsis with acute organ dysfunction Code(s): A41.9 - SEPSIS, UNSPECIFIED ORGANISM; R65.20 - SEVERE SEPSIS WITHOUT SEPTIC SHOCK Status: Acute (4) Alcoholic cirrhosis of liver Code(s): K70.30 - ALCOHOLIC CIRRHOSIS OF LIVER WITHOUT ASCITES Status: Chronic (5) Diabetes type 2, controlled Code(s): E11.9 - TYPE 2 DIABETES MELLITUS WITHOUT COMPLICATIONS Status: Chronic - Plan * KUB pending * EGD done, possible colonoscopy as per GI * labs in AM * no other changes in current medical plan of care * plan d/w patient, he understood and agreed with this plan.
--- NOTE | 2018-12-28 09:53 | RAD ---
XR Abdomen 1 View/KUB 2 view abdomen series CLINICAL INDICATION: Pain FINDINGS: Lung bases are clear. Limited evaluation of free air by supine positioning. No significantretained fecal material is seen within colon. There is a nonspecific bowel gas pattern with air-filled bowel throughout the abdomen and pelvis with out significant abnormal dilatation evident No acute osseous pathology. IMPRESSION: Nonspecific bowel gas pattern.
[2018-12-28] MEDS ORDERED: PROPOFOL 200 MG/20 ML VIAL ONE (12:58)
[2018-12-28] MEDS ORDERED: Lidocaine Viscous Sol 2% 15 ml UD Cup ONE (14:03)
[2018-12-28] MEDS ORDERED: Promethazine HCl 25 MG/ML VIAL SLOW IVP PRN (14:10)
[2018-12-28] MEDS ORDERED: Promethazine HCl 25 MG/ML VIAL IM PRN (14:10)
[2018-12-28] MEDS ORDERED: Ondansetron HCl/PF 4 MG/2 ML Vial IVP PRN (14:10)
[2018-12-28] MEDS: HumaLOG 300 UNITS/3 ML VIAL SC PRN ×2 (17:45→21:14)
[2018-12-28 19:11] LABS: #Eosinphils 0.2 thou/uL (0.0-0.7); #Lymphocytes 1.7 thou/uL (1.20-3.40); #Monocytes 0.7 thou/uL (0.11-0.59); #Neutrophils 8.2 thou/uL (1.40-6.50); %Basophils 0.3 % (0.0-1.0); %Eosinophils 1.4 % (0.0-10.0); %Lymphocytes 15.8 % (21.0-51.0); %Monocytes 6.6 % (0.0-10.0); %Neutrophils 75.9 % (42.0-75.0); Hemoglobin 8.6 g/dL (14.0-18.0); Mean Corpuscular Hemoglobin 29.4 pg (27.0-31.0); Mean Platelet Volume 7.8 fL (7.4-10.4); Platelet Count 359 thou/uL (130-400); RBC Distribution Width 14.8 % (11.5-14.5); Red Blood Cell (RBC) Count 2.92 mill/uL (4.70-6.10); White Blood Cell (WBC) Count 10.8 thou/uL (4.8-10.8)
--- NOTE | 2018-12-28 20:37 | OP ---
DATE OF PROCEDURE: 12/28/2018 OPERATIVE PROCEDURE: Colonoscopy. PREOPERATIVE DIAGNOSIS: A 53-year-old Latin-[place] Citizen male with anemia, . POSTOPERATIVE DIAGNOSIS: Sigmoid diverticular disease with occasional diverticula over the descending colon and also ascending colon. No other pathology seen. DESCRIPTION OF PROCEDURE: The patient was placed on his left lateral position and was given sedation by Anesthesia Department. A rectal exam was done before the scope was advanced into the rectum. No lesions felt on rectal exam. A Pentax video colonoscope was introduced into the rectum and advanced all the way into the cecum. The prep was good. The mucosa appears normal. In the appendiceal orifice and the ileocecal wall, no pathology seen. The patient had occasional diverticula over the ascending colon area. The remainder of the ascending colon, hepatic flexure, transverse colon; no pathology. The splenic flexure; no pathology. He did have some occasional diverticula over the descending colon. He also had scattered sigmoid diverticular disease. Retroflexion of the scope in the rectum showed no lesions. RECOMMENDATIONS: 1. Diet as tolerated. 2. Follow up H and H. Job ID: [id number]
[2018-12-29] MEDS: Metoclopramide HCl 10 MG/2 ML VIAL IVP SCH ×3 (05:33→20:51)
[2018-12-29 06:47] LABS: #Eosinphils 0.1 thou/uL (0.0-0.7); #Lymphocytes 1.5 thou/uL (1.20-3.40); #Monocytes 0.5 thou/uL (0.11-0.59); #Neutrophils 5.4 thou/uL (1.40-6.50); %Basophils 0.3 % (0.0-1.0); %Eosinophils 1.3 % (0.0-10.0); %Lymphocytes 19.6 % (21.0-51.0); %Monocytes 6.3 % (0.0-10.0); %Neutrophils 72.6 % (42.0-75.0); Hemoglobin 7.1 g/dL (14.0-18.0); Mean Corpuscular HGB CONC 32.7 g/dL (32.0-36.0); Mean Corpuscular Volume 88.8 fL (78.0-98.0); Mean Platelet Volume 7.6 fL (7.4-10.4); Platelet Count 220 thou/uL (130-400); RBC Distribution Width 15.1 % (11.5-14.5); Red Blood Cell (RBC) Count 2.46 mill/uL (4.70-6.10); White Blood Cell (WBC) Count 7.4 thou/uL (4.8-10.8)
[2018-12-29 07:02] LABS: Anion Gap 12 mmol/L (10-20); BUN (Urea Nitrogen) 25 mg/dL (8.4-25.7); Calc. Creatinine Clearance 54 mL/min (70-130); Calcium 7.6 mg/dL (7.8-10.44); Carbon Dioxide 19 mmol/L (22-29); Chloride 111 mmol/L (98-107); Estimated GFR-MDRD 44; Glucose 99 mg/dL (70-105); Sodium 138 mmol/L (136-145)
[2018-12-29] MEDS: guaiFENesin/DM ER PO SCH ×2 (08:38→20:51)
[2018-12-29] MEDS: Meropenem 500 MG in Sodium Chloride 0.9% 100 ML IVPB SCH ×3 (08:38→23:42)
[2018-12-29] MEDS: Saccharomyces boulardii 250 MG CAP PO SCH (08:38)
--- NOTE | 2018-12-29 08:57 | PDOC.PN ---
- Subjective Encounter Start Date: 12/29/18 Encounter Start Time: 11:50 Subjective: Patient feeling better. No fever. Suprapubic stomach pain almost gone. - Objective Resuscitation Status - Order Detail: 12/23/18 15:15 Resuscitation Status Routine Resuscitation Status: FULL: Full Resuscitation MAR Reviewed: Yes Vital Signs & Weight: Vital Signs (12 hours) Temp Pulse Resp BP BP Pulse Ox 12/29/18 08:00 98.3 F 94 20 124/79 95 12/29/18 04:55 98.6 F 76 18 145/86 H 94 L 12/29/18 00:42 98.5 F 78 18 138/87 92 L Weight Admit Weight 163 lb 6.4 oz Weight 163 lb 6.4 oz I&O: 12/28/18 12/29/18 12/30/18 06:59 06:59 06:59 Intake Total 2800 1650 Balance 2800 1650 Result Diagrams: 12/29/18 06:21 12/29/18 06:21 Additional Labs: Accuchecks 12/29/18 12/28/18 12/28/18 04:43 20:20 16:38 POC Glucose 100 227 H 201 H Phys Exam - Physical Examination Constitutional: NAD HEENT: moist MMs Respiratory: no wheezing, no rales, no rhonchi Cardiovascular: RRR, no significant murmur Gastrointestinal: soft, positive bowel sounds mild TTP suprapubic region, no masses or guarding Neurological: non-focal, moves all 4 limbs Psychiatric: normal affect, A&O x 3 Dx/Plan (1) Bacteremia, escherichia coli Code(s): R78.81 - BACTEREMIA Status: Acute Comment: On Meropenem since 2018 (2) UTI (urinary tract infection) Status: Acute (3) Sepsis Code(s): A41.9 - SEPSIS, UNSPECIFIED ORGANISM Status: Acute (4) Acute worsening of stage 3 chronic kidney disease Code(s): N18.3 - CHRONIC KIDNEY DISEASE, STAGE 3 (MODERATE) Status: Acute Comment: improving, uncertain baseline creatinine (5) Anemia, normocytic normochromic Code(s): D64.9 - ANEMIA, UNSPECIFIED Status: Acute Comment: EGD and Colonoscopy without source of bleeding, hemoccult negative (6) Alcoholic cirrhosis of liver Code(s): K70.30 - ALCOHOLIC CIRRHOSIS OF LIVER WITHOUT ASCITES Status: Chronic (7) Diabetes type 2, controlled Code(s): E11.9 - TYPE 2 DIABETES MELLITUS WITHOUT COMPLICATIONS Status: Chronic - Plan cont current plan of care, continue antibiotics, out of bed/ambulate * . - Discharge Day Encounter end time: 12:00
--- NOTE | 2018-12-29 10:24 | CON ---
DATE OF CONSULTATION: 12/26/2018 REFERRING DOCTOR: Dr. Carly Elkins, [facility] Hospitalist. REASON FOR CONSULTATION: Anemia with a history of dark stool, but the stool for occult blood x2 is negative. HISTORY OF PRESENT ILLNESS: Mr. Jesus Strong is a 53-year-old Latin-[place] male, hospitalized, I believe over three days ago with diarrhea. Apparently, he has been having diarrhea over the last several days. The stools are watery and he was having about 6 or 7 stools per day. He tells me the stool was also dark, but interestingly, his stool for fecal occult blood came back x2 negative. Also his stool cultures, C difficile, Campylobacter, all negative. He has had diarrhea over the last probably about 7 or 8 days. The stools are watery. He has had multiple stools throughout the day. He also felt weak and faint and came to the ER. In the ER, he was found to have evidence of acute kidney injury with elevated BUN and was hospitalized. Since admission, the patient has had stool studies done for C difficile culture, Campylobacter, all came negative. The stool for fecal occult blood x2 is negative. The patient has no prior history of any chronic kidney injury. The patient lives here and his family is in [place]. He says he goes to [place] at least every 2 months to see his doctor. Nobody ever told that he has anemia and Nobody ever told that he has something wrong with the kidneys before. The above information obtained through the plastic die maker apprentice. At the present time, he has hiccups, but does not have any abdominal pain, nausea, or vomiting. He had anemia and he has been transfused 1 unit of packed RBCs yesterday and he is supposed to receive one more unit today. His hemoglobin on admission was 12, hematocrit was 34.2, it has been drifting down slowly. Yesterday it dropped down to 6, hematocrit 18.1. He had 1 unit of packed cells. His hemoglobin and hematocrit remain the same. The patient has no abdominal pain. No dyspepsia. No dysphagia or odynophagia. His bowel movements are fairly regular until recently he has diarrhea. He has no relevant history. ALLERGIES: NONE. SOCIAL HISTORY: The patient smokes two cigarettes per day. He drinks alcohol and a 6-pack over the weekend. No history of drug abuse. MEDICAL ILLNESSES: Diabetes mellitus and he is on metformin. No history of heart disease. No lung disease. No stroke. No history of any kidney disease from before. SURGERIES: No major surgeries. MEDICATION LIST: Reviewed. FAMILY HISTORY: Unremarkable. No significant family history of gastric cancers, stroke, or heart disease, etc. REVIEW OF SYSTEMS: Ten-point system review; CONSTITUTIONAL: No history of any weight loss. No fever. He had good exercise tolerance test. HEENT: No dizziness. No syncope. No chronic headache. No diplopia. No hearing loss. No sore throat or dysphagia. LUNGS: No chronic coughing. No hemoptysis noted. No dyspnea. CARDIOVASCULAR: No chest pain. No palpitation. No dyspnea, orthopnea, or PND. GI: Diarrhea of recent onset. Otherwise, no other relevant GI symptoms. , NEUROPSYCHIATRIC, ENDOCRINE, HEMATOLOGICAL: Unremarkable. PHYSICAL EXAMINATION: GENERAL: He appears very comfortable. He is awake, alert, and communicative. Through the plastic die maker apprentice, I was able to get a good history. VITAL SIGNS: He is afebrile. Pulse is 90, blood pressure 130/78. HEENT: Conjunctivae are clear. NECK: Supple. No adenitis or thyromegaly noted. CARDIOVASCULAR: First and second heart sounds normal. LUNGS: Clear to auscultation. ABDOMEN: Soft. Abdomen is nondistended. Abdomen is nontender. No organomegaly or masses. Bowel sounds normal. EXTREMITIES: Reveal no edema. LABORATORY DATA: Admitting CBC; WBC 25,000, and has dropped to 10,100. Hemoglobin 12, dropping to 8.6 yesterday and today 6.3. Hematocrit 34.2, dropping to 19.2. MCV is normal at 85, platelet count is 196 on admission and today is 171, transient drop to 119 on 12/24/2018. Differential count; polymorphs 80, lymphocytes 10, and banding of 15%, now no more bandemia. Chem 7 intensely shows elevation of BUN to 66, creatinine 2.12, glucose 132, calcium 7.4, phosphorus 3, albumin 2. His stool studies are all negative. His C difficile toxin and antigen negative. Shiga toxin negative. Campylobacter antigen negative. Urine culture is growing E coli. Blood culture is also growing E coli. The stool for occult blood done twice and both times reported negative for occult blood. CLINICAL IMPRESSION: 1. A 53-year-old with diabetes mellitus, presents with acute diarrhea. He has evidence of acute kidney injury, possibly of chronic kidney disease. The diarrhea basically appears dark, but stool for occult blood is negative. Interestingly, blood count has been dropping down slowly from 12 to 6. Due to the drop in blood count and negative occult blood, I am really not sure that he has any underlying bone marrow disease or hemolysis. 2. Diabetes mellitus. 3. Elevated BUN and creatinine, most likely chronic kidney disease. 4. Anemia, etiology unclear. RECOMMENDATION: We will plan for EGD later on today. If the EGD is negative, plan colonoscopy tomorrow. This was explained to the patient with the plastic die maker apprentice and he is agreeable. Job ID: [id number]
--- NOTE | 2018-12-29 17:35 | PRG ---
DATE OF SERVICE: SUBJECTIVE: This is a 53-year-old Latin-[place] male with diabetes mellitus, admitted to hospital because of diarrhea. The patient's stool studies were negative. He also has negative stool for occult blood. However, his blood count has been dropping down last week and had to have a transfusion. The patient with history of dark stool, but the stool came back negative for occult blood. He had an EGD done which revealed two gastric ulcers, nonbleeding and gastritis. The colonoscopy done 2 days later showed no pathology except for hemorrhoids. The patient is actually feeling better. He has no diarrhea today. He is not having any hiccups. No nausea, no vomiting. No abdominal pain. He says he is feeling better. The workup in the hospital did show evidence of liver cirrhosis ascites. The patient denies drinking alcohol heavily, but subsequently upon questioning admitted to drink heavily in the past. Now he drinks only 2 or 3 beers on the weekends. PHYSICAL EXAMINATION: GENERAL: Appears comfortable, afebrile. VITAL SIGNS: Pulse is 71, blood pressure 150/84. Conjunctivae clear. CARDIOVASCULAR: First and second heart sounds heard. LUNGS: Clear to auscultation. ABDOMEN: Soft. Abdomen is nontender. No organomegaly or masses. Bowel sounds normal. LABORATORY DATA: From today shows hemoglobin dropping down to 7.1, hematocrit 21.9, MCV 88.8, platelet count is 220,000. Chemistry panel: Glucose is 150. Lytes are normal. CO2 is 19. IMPRESSION: 1. Liver cirrhosis by abdominal sonogram with some mild ascites. 2. Anemia with no signs of bleeding in the upper gastrointestinal tract or the lower gastrointestinal tract. He does have gastric ulcer. 3. Diabetes mellitus. 4. Anemia. RECOMMENDATION: 1. Start him on low-dose diuretics. 2. Follow up H and H and may transfuse as needed. May need hematology input because of anemia without any sign of overt bleeding. Job ID: [id number]
[2018-12-30] MEDS: Metoclopramide HCl 10 MG/2 ML VIAL IVP SCH ×3 (05:32→20:04)
[2018-12-30] MEDS: Meropenem 500 MG in Sodium Chloride 0.9% 100 ML IVPB SCH ×3 (08:25→23:24)
[2018-12-30] MEDS: Saccharomyces boulardii 250 MG CAP PO SCH (08:25)
[2018-12-30] MEDS: guaiFENesin/DM ER PO SCH ×2 (08:25→20:04)
--- NOTE | 2018-12-30 11:17 | PDOC.PN ---
- Subjective Encounter Start Date: 12/30/18 Encounter Start Time: 11:15 Subjective: Pt is seen and examined for UTI, Anemia, Cirrhosis of Liver - Objective Resuscitation Status - Order Detail: 12/23/18 15:15 Resuscitation Status Routine Resuscitation Status: FULL: Full Resuscitation MAR Reviewed: Yes Vital Signs & Weight: Vital Signs (12 hours) Temp Pulse Resp BP BP Pulse Ox 12/30/18 07:08 98.3 F 73 17 125/74 95 12/30/18 05:09 98.4 F 70 20 142/85 H 93 L 12/30/18 01:21 98.5 F 75 20 134/80 93 L Weight Admit Weight 163 lb 6.4 oz Weight 163 lb 6.4 oz I&O: 12/29/18 12/30/18 12/31/18 06:59 06:59 06:59 Intake Total 1650 1740 240 Balance 1650 1740 240 Result Diagrams: 12/29/18 06:21 12/29/18 06:21 Additional Labs: Accuchecks 12/30/18 12/29/18 12/29/18 05:12 20:36 16:56 POC Glucose 117 H 131 H 116 H 12/29/18 11:52 POC Glucose 150 H Phys Exam - Physical Examination HEENT: PERRLA, moist MMs, sclera anicteric, oral pharynx no lesions, 2+ tonsils Conjuctiva Pale Neck: no nodes, no JVD, supple Respiratory: no wheezing, no rales, no rhonchi Cardiovascular: RRR Gastrointestinal: soft, non-tender, no distention, positive bowel sounds Musculoskeletal: no edema, pulses present Neurological: non-focal, normal sensation Dx/Plan (1) Acute worsening of stage 3 chronic kidney disease Code(s): N18.3 - CHRONIC KIDNEY DISEASE, STAGE 3 (MODERATE) Status: Acute Comment: improving, uncertain baseline creatinine (2) Anemia, normocytic normochromic Code(s): D64.9 - ANEMIA, UNSPECIFIED Status: Acute Comment: EGD and Colonoscopy without source of bleeding, hemoccult negative (3) Bacteremia, escherichia coli Code(s): R78.81 - BACTEREMIA Status: Acute Comment: On Meropenem since 2018 (4) Hyponatremia Code(s): E87.1 - HYPO-OSMOLALITY AND HYPONATREMIA Status: Acute (5) Sepsis secondary to UTI Code(s): A41.9 - SEPSIS, UNSPECIFIED ORGANISM; N39.0 - URINARY TRACT INFECTION, SITE NOT SPECIFIED Status: Acute (6) Sepsis with acute organ dysfunction Code(s): A41.9 - SEPSIS, UNSPECIFIED ORGANISM; R65.20 - SEVERE SEPSIS WITHOUT SEPTIC SHOCK Status: Acute (7) UTI (urinary tract infection) Status: Acute (8) Alcoholic cirrhosis of liver Code(s): K70.30 - ALCOHOLIC CIRRHOSIS OF LIVER WITHOUT ASCITES Status: Chronic (9) Diabetes type 2, controlled Code(s): E11.9 - TYPE 2 DIABETES MELLITUS WITHOUT COMPLICATIONS Status: Chronic - Plan DVT proph w/SCDs Anemia , Hg still droping, 7.1, no active bleeding, will get Heamatology -: Consult -: UTI , IV Merrrem 02/13 * . Review of Systems - Review of Systems Constitutional: negative: fever, chills, sweats, weakness, malaise, other Eyes: negative: Pain, Vision Change, Conjunctivae Inflammation, Eyelid Inflammation, Redness, Other ENT: negative: Ear Pain, Ear Discharge, Nose Pain, Nose Discharge, Nose Congestion, Mouth Pain, Mouth Swelling, Throat Pain, Throat Swelling, Other Respiratory: negative: Cough, Dry, Shortness of Breath, Hemoptysis, SOB with Excertion, Pleuritic Pain, Sputum, Wheezing Cardiovascular: negative: chest pain, palpitations, orthopnea, paroxysmal nocturnal dyspnea, edema, light headedness, other Gastrointestinal: negative: Nausea, Vomiting, Abdominal Pain, Diarrhea, Constipation, Melena, Hematochezia, Other Genitourinary: negative: Dysuria, Frequency, Incontinence, Hematuria, Retention , Other Musculoskeletal: negative: Neck Pain, Shoulder Pain, Arm Pain, Back Pain, Hand Pain, Leg Pain, Foot Pain, Other - Medications/Allergies Allergies/Adverse Reactions: Allergies Allergy/AdvReac Type Severity Reaction Status Date / Time No Known Allergies Allergy Unverified 12/23/18 13:41 Medications: Current Medications Acetaminophen (Tylenol) 650 mg PO Q6H PRN PRN Reason: Mild Pain (1-3) Hydrocodone Bitart/Acetaminophen ([place] 5/325) 1 tab PO Q4H PRN PRN Reason: Moderate Pain (4-6) Artificial Tears (Tears Naturale) 2 drop EA EYE PRN PRN PRN Reason: Dry Eyes Benzonatate (Tessalon) 100 mg PO TIDPRN PRN PRN Reason: Cough Last Admin: 12/25/18 20:35 Dose: 100 mg Calcium Carbonate (Tums) 1,000 mg PO Q4H PRN PRN Reason: Heartburn or Indigestion Dextrose/Water (Dextrose 50%) 25 gm SLOW IVP PRN PRN PRN Reason: Hypoglycemia Glucagon (Glucagon) 1 mg IM PRN PRN PRN Reason: Hypoglycemia Guaifenesin (Robitussin Sf) 200 mg PO Q4H PRN PRN Reason: Cough Guaifenesin/Dextromethorphan (Mucinex Dm) 1 tab PO Q12HR [facility] Last Admin: 12/30/18 08:25 Dose: 1 tab Hydralazine HCl (Apresoline) 10 mg SLOW IVP Q4H PRN PRN Reason: SBP > 180 and HR < 70 Dextrose/Water (D5w) 1,000 mls @ 0 mls/hr IV .Q0M PRN PRN Reason: Hypoglycemia Meropenem 500 mg/ Sodium (Chloride) 100 mls @ 200 mls/hr IVPB 0000,0800,1600 [facility] Last Admin: 12/30/18 08:25 Dose: 100 mls Insulin Human Lispro (Humalog) 0 units SC .MILD SLIDING SCALE PRN PRN Reason: Mild Correctional Scale Last Admin: 12/28/18 21:14 Dose: 3 unit Loperamide HCl (Imodium) 2 mg PO PRN PRN PRN Reason: Diarrhea/Loose Stools Loratadine (Claritin) 10 mg PO DAILYPRN PRN PRN Reason: Sinus Symptoms Metoclopramide HCl (Reglan) 10 mg IVP Q8HR [facility] Last Admin: 12/30/18 05:32 Dose: 10 mg Mineral Oil/White Petrolatum (Eucerin Cream) 0 gm TOP BIDPRN PRN PRN Reason: Dry Skin Ondansetron HCl (Zofran Odt) 4 mg PO Q6H PRN PRN Reason: Nausea/Vomiting Last Admin: 12/25/18 08:33 Dose: 4 mg Ondansetron HCl (Zofran) 4 mg IVP Q6H PRN PRN Reason: Nausea/Vomiting Last Admin: 12/27/18 08:03 Dose: 4 mg Pantoprazole Sodium (Protonix) 40 mg PO DAILY [facility] Last Admin: 12/30/18 08:26 Dose: 40 mg Saccharomyces Boulardii (Florastor) 250 mg PO DAILY [facility] Last Admin: 12/30/18 08:25 Dose: 250 mg Senna/Docusate Sodium (Senokot S) 2 tab PO BID PRN PRN Reason: Constipation Sodium Chloride ([place] Nasal [place] 0.65%) 0 ml EA NARE QIDPRN PRN PRN Reason: Nasal Congestion Sodium Chloride (Flush - Normal Saline) 10 ml IVF Q12HR [facility] Last Admin: 12/30/18 08:26 Dose: 10 ml Sodium Chloride (Flush - Normal Saline) 10 ml IVF PRN PRN PRN Reason: Saline Flush Throat Lozenges (Cepastat Lozenges) 1 len PO Q2H PRN PRN Reason: Sore Throat Zolpidem Tartrate (Ambien) 5 mg PO HSPRN PRN PRN Reason: Insomnia
[2018-12-31] MEDS: Metoclopramide HCl 10 MG/2 ML VIAL IVP SCH ×3 (05:12→21:40)
[2018-12-31 06:23] LABS: #Eosinphils 0.1 thou/uL (0.0-0.7); #Lymphocytes 1.2 thou/uL (1.20-3.40); #Monocytes 0.3 thou/uL (0.11-0.59); #Neutrophils 6.5 thou/uL (1.40-6.50); %Basophils 0.4 % (0.0-1.0); %Eosinophils 0.7 % (0.0-10.0); %Lymphocytes 14.7 % (21.0-51.0); %Monocytes 4.1 % (0.0-10.0); %Neutrophils 80.2 % (42.0-75.0); Mean Corpuscular HGB CONC 31.7 g/dL (32.0-36.0); Mean Corpuscular Hemoglobin 28.4 pg (27.0-31.0); Mean Corpuscular Volume 89.7 fL (78.0-98.0); Mean Platelet Volume 7.3 fL (7.4-10.4); Platelet Count 179 thou/uL (130-400); RBC Distribution Width 15.5 % (11.5-14.5); Red Blood Cell (RBC) Count 2.48 mill/uL (4.70-6.10); White Blood Cell (WBC) Count 8.1 thou/uL (4.8-10.8)
[2018-12-31 06:46] LABS: Anion Gap 10 mmol/L (10-20); BUN (Urea Nitrogen) 22 mg/dL (8.4-25.7); Calc. Creatinine Clearance 57 mL/min (70-130); Calcium 7.7 mg/dL (7.8-10.44); Carbon Dioxide 21 mmol/L (22-29); Chloride 109 mmol/L (98-107); Estimated GFR-MDRD 47; Glucose 87 mg/dL (70-105); Potassium 3.9 mmol/L (3.5-5.1); Sodium 136 mmol/L (136-145)
[2018-12-31] MEDS: Meropenem 500 MG in Sodium Chloride 0.9% 100 ML IVPB SCH ×2 (09:06→16:53)
[2018-12-31] MEDS: Saccharomyces boulardii 250 MG CAP PO SCH (09:07)
[2018-12-31] MEDS: guaiFENesin/DM ER PO SCH ×2 (09:07→20:44)
[2018-12-31 10:26] LABS: #Lymphocytes 1.1 thou/uL (1.20-3.40); #Monocytes 0.4 thou/uL (0.11-0.59); #Neutrophils 9.1 thou/uL (1.40-6.50); %Basophils 0.4 % (0.0-1.0); %Eosinophils 0.4 % (0.0-10.0); %Lymphocytes 10.7 % (21.0-51.0); %Monocytes 3.4 % (0.0-10.0); %Neutrophils 85.2 % (42.0-75.0); Hemoglobin 8.2 g/dL (14.0-18.0); Mean Corpuscular HGB CONC 32.6 g/dL (32.0-36.0); Mean Corpuscular Hemoglobin 28.8 pg (27.0-31.0); Mean Corpuscular Volume 88.5 fL (78.0-98.0); Mean Platelet Volume 7.2 fL (7.4-10.4); Platelet Count 203 thou/uL (130-400); RBC Distribution Width 15.7 % (11.5-14.5); Red Blood Cell (RBC) Count 2.85 mill/uL (4.70-6.10); Reticulocyte Count 5.2 % (0.5-1.5); White Blood Cell (WBC) Count 10.6 thou/uL (4.8-10.8)
--- NOTE | 2018-12-31 10:37 | CT ---
CT Abdomen Pelvis WO Con 12/31/2018 9:45 AM HISTORY: UTI with bacteremia, cirrhosis. COMPARISON: None. Technique: Multiple contiguous axial images were obtained and a CT of the abdomen and pelvis without IV contrast . Coronal reformats were performed. FINDINGS: This examination is limited for the evaluation of solid organs and vascular structures due to the lac k of intravenous contrast. Lower Chest: A moderate left and tiny right pleural effusions are identified with associated passive atelectasis. A tiny less than 4 mm nodular density is seen in the right lower lobe adjacent to the major fissure. This may represent tiny focus of nodular pleural thickening. Abdomen: Liver: A nodular peripheral contour is identified likely reflective of cirrhosis. The portal vein is dilated measuring 2 cm in diameter suggesting portal hypertension Gallbladder: No calcified gallstones. Gallbladder wall is at the upper limits of normal. Pancreas: within normal limits. Spleen: Enlarged measuring 15 cm in craniocaudal dimensions. Adrenals: within normal limits. Kidneys: No renal calculi are visualized, and there is no evidence of hydronephrosis. Ureters: No ureteral calculus is seen.. Pelvis: Urinary bladder: Incompletely distended but otherwise grossly normal in appearance. Reproductive Organs: No pelvic masses. Bowel: Colonic diverticulosis is visualized.The appendix is normal in caliber. Lymph Nodes: No enlarged lymph nodes. Peritoneum: A moderate amount of intraperitoneal free fluid is seen throughout the abdomen and pelvis . Vessels: Vascular calcifications are seen in the abdominal aorta and involving the iliac arteries.. Retroperitoneum: within normal limits. Abdominal Wall: Minimal subcutaneous edema is present. Bones: Mild degenerative changes are seen in the spine. There is pseudoarticulation of the left later al mass of L5 with S1 with sclerosis and degenerative changes at the area of pseudoarticulation. IMPRESSION: 1. Evidence of cirrhosis and splenomegaly with findings suggesting portal hypertension as evidenced b y enlargement of the main portal vein. 2. Moderate amount of ascites. 3. Left and small right pleural effusions with associated passive atelectasis. 4. Colonic diverticulosis. 5. No renal or ureteral calculi are seen bilaterally, and there is no hydronephrosis.
[2018-12-31 10:44] LABS: Iron 15 ug/dL (65-175); Iron Binding Capacity, Total 213 mcg/dL (261-462)
--- NOTE | 2018-12-31 10:52 | PRG ---
DATE OF SERVICE: 12/31/2018 SUBJECTIVE: The patient reports he still has a little bit of discomfort in the lower abdomen area, but it is getting better. He has no other complaints. He is eager to go home. OBJECTIVE: VITAL SIGNS: Temperature is 98.9, pulse 85 up to 112, O2 saturation 93% on room air, and BP 122/75. GENERAL APPEARANCE: Age-appropriate male, in no distress. He is awake, alert, oriented, pleasant, and cooperative. HEART: Regular rate and rhythm without murmurs, gallops, or rubs. LUNGS: Clear to auscultation bilaterally. Decreased at the bases, but no wheezes or rales. ABDOMEN: Slightly protuberant, but soft. It is nondistended. He has hyperactive bowel sounds. He is minimally tender in the periumbilical area. No masses or organomegaly. EXTREMITIES: Trace pretibial edema. LABORATORY DATA: White count 8.1, hemoglobin 7.0, MCV is normal, and platelets 179. Sodium 136, potassium 3.9, chloride 109, CO2 is 21, BUN is 22, creatinine 1.56, and glucose 130 to 145. IMPRESSION AND PLAN: 1. Urinary tract infection with E. coli, had relatively low colony counts, but did have a bacteremia. We will get a CT abdomen and pelvis to rule out any anatomic abnormalities that might be precipitating infection. 2. Escherichia coli bacteremia, likely secondary to urinary tract infection, this is a relatively resistant Escherichia coli. He is on meropenem to which it is sensitive. We will consult Dr. Mckeon to determine long-term treatment needs. 3. Anemia. The patient has significant anemia. He has had 1 transfusion and his hemoglobin is back to 7. We will do an anemia workup today with reticulocyte count and vitamin assays. We will also do orthostatic vital signs to determine if he needs a transfusion. The patient may have some chronic kidney disease. It may be contributory that is not known with any certainty as we do not have any prior renal function studies on him. 4. Acute renal failure. There may be a chronic component, but as stated above, it is unclear, we do not have prior numbers for comparison. His creatinine is improving daily. 5. Esophageal and gastric ulcers. There is no active bleeding associated with these. Continue with proton pump inhibitor. 6. Cirrhosis with ascites, likely secondary to alcohol consumption, may be contributing to his anemia and relative thrombocytopenia, otherwise stable. 7. Hyponatremia secondary to liver disease, stable. 8. Diabetes mellitus, well controlled. No change. Job ID: [id number]
--- NOTE | 2019-01-01 00:22 | CON ---
DATE OF CONSULTATION: 12/31/2018 REASON FOR CONSULTATION: Urinary tract infection with bacteremia. HISTORY OF PRESENT ILLNESS: A 53-year-old with history of type 2 diabetes, who developed diarrhea for 7 days before admission followed by fever. He did not have any headaches. No visual symptoms, sore throat, odynophagia, or dysphagia. No respiratory symptoms. No abdominal pain. No dysuria, hematuria, or frequency. No back pain. PAST MEDICAL HISTORY: Type 2 diabetes. MEDICATION LIST: Metformin. Current medications include; 1. Tylenol. 2. Tessalon. 3. Tums. 4. Dextrose. 5. Mucinex. 6. Apresoline. 7. Insulin. 8. Loperamide. 9. Claritin. 10. Meropenem. 11. Reglan. 12. Ondansetron. 13. Pantoprazole. 14. Saccharomyces. 15. Ambien. ALLERGIES: NONE. PAST SURGICAL HISTORY: Nothing really major. FAMILY HISTORY: . His family lives in [place]. He has a son who lives in [place]. SOCIAL HISTORY: He smokes few cigarettes per day. He used to drink heavily, but has cut down lately. PHYSICAL EXAMINATION: VITAL SIGNS: T-max now is 100.4, he had been afebrile for the most part. BP 120/80, pulse 102, respirations 18. SKIN: Not remarkable. HEENT: No lymphadenopathy. Ocular movements conjugate. Sclerae white. Pupils are equal. Conjunctivae normal. Nasal passages patent. Oral cavity unremarkable. He has numerous missing teeth. NECK: Supple. No jugular vein distention. LUNGS: Clear to auscultation and percussion. HEART: S1 and S2. Regular rate. No S3 or S4. ABDOMEN: Soft without tenderness. No bladder distention. No genital abnormalities. EXTREMITIES: Pulses 1+ in dorsalis pedis. Moves all extremities equally. No clonus. NEUROLOGIC: He is awake, oriented, follows commands. LABORATORY DATA: White cell count 10.6, hemoglobin 8.2, platelets 203. Sodium 136, creatinine 1.56, which is down from admission. GFR is around 47. His bilirubin is 0.5, AST 39, alkaline phosphatase 186, albumin 2.0. Urinalysis with 11 to 20 wbc's. Serology, nonreactive hepatitis C, B, and A. Abdomen and pelvis CT with nodular liver consistent with cirrhosis. Kidneys were not particularly remarkable. Bladder was grossly normal. Microbiology with E coli in urine culture and one set of blood culture showed an ESBL organism. ASSESSMENT: 1. Type 2 diabetes. 2. Diarrhea with general malaise. 3. Escherichia coli bacteremia with positive urine culture. DISCUSSION: The patient probably is not symptomatic because of diabetic associated neuropathy, but he does have conclusive findings to suggest an invasive UTI with pyelonephritis, prostatitis is another possibility as well, but less likely. He will need PICC line and 2 weeks of ertapenem given in the Oncology area since he does not have any coverage. Job ID: [id number] [facility]
[2019-01-01] MEDS: Metoclopramide HCl 10 MG/2 ML VIAL IVP SCH ×3 (05:29→21:28)
[2019-01-01 06:03] LABS: #Lymphocytes 1.1 thou/uL (1.20-3.40); #Monocytes 0.4 thou/uL (0.11-0.59); #Neutrophils 5.9 thou/uL (1.40-6.50); %Basophils 0.3 % (0.0-1.0); %Eosinophils 0.6 % (0.0-10.0); %Lymphocytes 14.8 % (21.0-51.0); %Monocytes 5.6 % (0.0-10.0); %Neutrophils 78.7 % (42.0-75.0); Hemoglobin 7.3 g/dL (14.0-18.0); Mean Corpuscular HGB CONC 32.9 g/dL (32.0-36.0); Mean Corpuscular Hemoglobin 29.3 pg (27.0-31.0); Mean Corpuscular Volume 89.2 fL (78.0-98.0); Mean Platelet Volume 7.6 fL (7.4-10.4); Platelet Count 173 thou/uL (130-400); RBC Distribution Width 15.3 % (11.5-14.5); Red Blood Cell (RBC) Count 2.49 mill/uL (4.70-6.10); White Blood Cell (WBC) Count 7.5 thou/uL (4.8-10.8)
[2019-01-01] MEDS: guaiFENesin/DM ER PO SCH ×2 (08:21→21:23)
[2019-01-01] MEDS: Saccharomyces boulardii 250 MG CAP PO SCH (08:21)
[2019-01-01] MEDS: Meropenem 500 MG in Sodium Chloride 0.9% 100 ML IVPB SCH ×2 (09:00)
[2019-01-01] MEDS ORDERED: MEROPENEM 1 GM/50 ML 1 GM in Premix Bag 1 BAG IVPB SCH (13:00)
--- NOTE | 2019-01-01 13:12 | PDOC.PN ---
- Subjective Encounter Start Date: 01/01/19 Encounter Start Time: 13:11 Subjective: Feeling better. -: No further vomiting or dizziness. - Objective Resuscitation Status - Order Detail: 12/23/18 15:15 Resuscitation Status Routine Resuscitation Status: FULL: Full Resuscitation Vital Signs & Weight: Vital Signs (12 hours) Temp Pulse Resp BP BP BP Pulse Ox 01/01/19 09:45 98.8 F 69 18 119/77 120/82 124/81 93 L 01/01/19 08:21 95 01/01/19 08:00 98.6 F 90 18 125/82 95 01/01/19 04:05 99.4 F 74 18 123/79 120/80 126/75 94 L Weight Admit Weight 163 lb 6.4 oz Weight 163 lb 6.4 oz I&O: 12/31/18 01/01/19 01/02/19 06:59 06:59 06:59 Intake Total 2390 4120 Balance 2390 4120 Result Diagrams: 01/01/19 05:31 12/31/18 06:00 Additional Labs: Accuchecks 01/01/19 01/01/19 12/31/18 11:42 06:33 19:39 POC Glucose 113 H 143 H 228 H 12/31/18 16:21 POC Glucose 124 H Phys Exam - Physical Examination Constitutional: NAD HEENT: PERRLA Neck: no JVD, supple Respiratory: no rales, no rhonchi fair air entry bilaterally Cardiovascular: RRR Gastrointestinal: positive bowel sounds enlarged and firm. Musculoskeletal: no edema, pulses present Neurological: non-focal, moves all 4 limbs Psychiatric: A&O x 3 Dx/Plan (1) Bacteremia, escherichia coli Code(s): R78.81 - BACTEREMIA Status: Acute Comment: On Meropenem since 2018 (2) Gastric ulcer Code(s): K25.9 - GASTRIC ULCER, UNSP ACUTE OR CHRONIC, W/O HEMOR OR PERF Status: Acute (3) Esophagitis Code(s): K20.9 - ESOPHAGITIS, UNSPECIFIED Status: Acute (4) Diarrhea Code(s): R19.7 - DIARRHEA, UNSPECIFIED Status: Acute (5) Physical deconditioning Code(s): R53.81 - OTHER MALAISE Status: Acute (6) Ascites due to alcoholic cirrhosis Code(s): K70.31 - ALCOHOLIC CIRRHOSIS OF LIVER WITH ASCITES Status: Acute (7) Acute worsening of stage 3 chronic kidney disease Code(s): N18.3 - CHRONIC KIDNEY DISEASE, STAGE 3 (MODERATE) Status: Acute Comment: improving, uncertain baseline creatinine (8) Anemia, normocytic normochromic Code(s): D64.9 - ANEMIA, UNSPECIFIED Status: Acute Comment: EGD and Colonoscopy without source of bleeding, hemoccult negative (9) Hyponatremia Code(s): E87.1 - HYPO-OSMOLALITY AND HYPONATREMIA Status: Acute (10) Sepsis with acute organ dysfunction Code(s): A41.9 - SEPSIS, UNSPECIFIED ORGANISM; R65.20 - SEVERE SEPSIS WITHOUT SEPTIC SHOCK Status: Acute (11) UTI (urinary tract infection) Status: Acute (12) Alcoholic cirrhosis of liver Code(s): K70.30 - ALCOHOLIC CIRRHOSIS OF LIVER WITHOUT ASCITES Status: Chronic (13) Diabetes type 2, controlled Code(s): E11.9 - TYPE 2 DIABETES MELLITUS WITHOUT COMPLICATIONS Status: Chronic - Plan Continue meropenem -: Place PICC line for IV antibiotics. -: get US paracentesis -: Continue other treatments. * .
--- NOTE | 2019-01-01 17:50 | PRG ---
DATE OF SERVICE: 01/01/2019 SUBJECTIVE: Mr. Strong is feeling better. No respiratory symptoms or abdominal pain or diarrhea. No genitourinary symptoms. OBJECTIVE: VITAL SIGNS: Normal. GENERAL: Awake, alert, and oriented. LUNGS: Clear. HEART: S1 and S2. Regular rate. ABDOMEN: Soft, not distended or tender. EXTREMITIES: Moves all extremities equally. LABORATORY DATA: White cell count 7.5, hemoglobin 7.3, MCV 89, and platelets 173. Creatinine is 1.56, which is better than admission. Iron was 15, TIBC 213, vitamin B12 and folate were normal. ASSESSMENT AND DISCUSSION: Type 2 diabetes, diarrhea, general malaise, E. coli bacteremia with positive urine culture with likely pyelonephritis. Could have prostatitis as well. In view of the profile of the E. coli, we will need ertapenem given in the Oncology area for about 2 weeks. Peripherally inserted central catheter line placement. Job ID: [id number]
[2019-01-01] MEDS: MEROPENEM 1 GM/50 ML 1 GM in Premix Bag 1 BAG IVPB SCH (21:23)
[2019-01-02] MEDS: Metoclopramide HCl 10 MG/2 ML VIAL IVP SCH ×3 (06:00→21:18)
[2019-01-02 07:13] LABS: #Eosinphils 0.1 thou/uL (0.0-0.7); #Lymphocytes 1.1 thou/uL (1.20-3.40); #Monocytes 0.5 thou/uL (0.11-0.59); #Neutrophils 4.7 thou/uL (1.40-6.50); %Basophils 0.7 % (0.0-1.0); %Eosinophils 0.9 % (0.0-10.0); %Lymphocytes 17.2 % (21.0-51.0); %Monocytes 7.1 % (0.0-10.0); %Neutrophils 74.1 % (42.0-75.0); Hemoglobin 7.2 g/dL (14.0-18.0); Mean Corpuscular HGB CONC 31.7 g/dL (32.0-36.0); Mean Corpuscular Hemoglobin 28.4 pg (27.0-31.0); Mean Corpuscular Volume 89.6 fL (78.0-98.0); Mean Platelet Volume 7.9 fL (7.4-10.4); Platelet Count 154 thou/uL (130-400); RBC Distribution Width 15.2 % (11.5-14.5); Red Blood Cell (RBC) Count 2.54 mill/uL (4.70-6.10); White Blood Cell (WBC) Count 6.3 thou/uL (4.8-10.8)
[2019-01-02 07:34] LABS: ALT (SGPT) 23 U/L (8-55); AST (SGOT) 33 U/L (5-34); Albumin 2.2 g/dL (3.5-5.0); Alkaline Phosphatase 299 U/L (40-150); Anion Gap 11 mmol/L (10-20); BUN (Urea Nitrogen) 20 mg/dL (8.4-25.7); Bilirubin, Total 0.6 mg/dL (0.2-1.2); Calc. Creatinine Clearance 62 mL/min (70-130); Calcium 7.7 mg/dL (7.8-10.44); Carbon Dioxide 21 mmol/L (22-29); Chloride 108 mmol/L (98-107); Estimated GFR-MDRD 52; Globulin 3.3 g/dL (2.4-3.5); Glucose 91 mg/dL (70-105); Protein, Total 5.5 g/dL (6.0-8.3); Sodium 136 mmol/L (136-145)
[2019-01-02] MEDS: guaiFENesin/DM ER PO SCH ×2 (08:00→21:13)
[2019-01-02] MEDS: Saccharomyces boulardii 250 MG CAP PO SCH (08:00)
[2019-01-02] MEDS: MEROPENEM 1 GM/50 ML 1 GM in Premix Bag 1 BAG IVPB SCH ×2 (08:50→21:14)
--- NOTE | 2019-01-02 11:22 | ULT ---
Exam: Ultrasound guided paracentesis HISTORY: Ascites COMPARISON: None FINDINGS: Successful ultrasound-guided paracentesis. Total of 2.6 L of yellow ascites was aspirated. TECHNIQUE: Consent obtained reformatory ultrasound-guided paracentesis. Right lower quadrant was deem ed appropriate. Skin was prepped and draped in a sterile fashion. 1% lidocaine, buffered with sodium bicarbonate was used for local anesthesia. Under ultrasound guidance, a 5 German 7 cm Yueh cat heter is advanced in the peritoneal space. A total of 2.6 L of yellow ascites was aspirated. No immediate or postprocedural complications IMPRESSION: Successful ultrasound-guided paracentesis.
[2019-01-02 11:57] LABS: Body Fluid Source Paracentesis Fluid; Clarity Hazy (Clear)
[2019-01-02 12:00] LABS: BF Color Yellow; Tube # EDTA
[2019-01-02 12:02] LABS: BF RBC Count - Manual 53 /cumm; BF WBC/Nonhematics Ct. - Manua 18 /cumm
[2019-01-02 12:25] LABS: BF Segmented Neutrophils 5 %; Cell Count Non Hematic 66 %; Lymphocytes 29 %
--- NOTE | 2019-01-02 14:48 | PDOC.PN ---
- Subjective Encounter Start Date: 01/02/19 Encounter Start Time: 14:47 Subjective: No new problem -: Hd paracentesis earlier today. -: For PICC placement - Objective Resuscitation Status - Order Detail: 12/23/18 15:15 Resuscitation Status Routine Resuscitation Status: FULL: Full Resuscitation Vital Signs & Weight: Vital Signs (12 hours) Temp Pulse Resp BP BP Pulse Ox 01/02/19 11:00 98.2 F 90 18 122/89 98 01/02/19 08:00 94 L 01/02/19 07:32 98.6 F 85 18 122/70 94 L 01/02/19 05:11 98.6 F 72 18 126/80 95 Weight Admit Weight 163 lb 6.4 oz Weight 163 lb 6.4 oz I&O: 01/01/19 01/02/19 01/03/19 06:59 06:59 06:59 Intake Total 4120 840 Balance 4120 840 Result Diagrams: 01/02/19 06:06 01/02/19 06:06 Additional Labs: Accuchecks 01/02/19 01/02/19 01/01/19 11:35 05:10 19:51 POC Glucose 95 100 177 H 01/01/19 16:39 POC Glucose 130 H Phys Exam - Physical Examination Constitutional: NAD HEENT: PERRLA Neck: supple Respiratory: no wheezing, no rhonchi fair air entry bilaterally Cardiovascular: RRR, no significant murmur Gastrointestinal: soft, non-tender, positive bowel sounds Musculoskeletal: no edema, pulses present Neurological: non-focal, moves all 4 limbs Psychiatric: A&O x 3 Dx/Plan (1) Bacteremia, escherichia coli Code(s): R78.81 - BACTEREMIA Status: Acute Comment: On Meropenem since 2018 (2) Sepsis with acute organ dysfunction Code(s): A41.9 - SEPSIS, UNSPECIFIED ORGANISM; R65.20 - SEVERE SEPSIS WITHOUT SEPTIC SHOCK Status: Acute (3) Gastric ulcer Code(s): K25.9 - GASTRIC ULCER, UNSP ACUTE OR CHRONIC, W/O HEMOR OR PERF Status: Acute (4) Esophagitis Code(s): K20.9 - ESOPHAGITIS, UNSPECIFIED Status: Acute (5) Diarrhea Code(s): R19.7 - DIARRHEA, UNSPECIFIED Status: Acute (6) Physical deconditioning Code(s): R53.81 - OTHER MALAISE Status: Acute (7) Ascites due to alcoholic cirrhosis Code(s): K70.31 - ALCOHOLIC CIRRHOSIS OF LIVER WITH ASCITES Status: Acute Comment: S/p paracentesis on 01/02/2019 (8) Acute worsening of stage 3 chronic kidney disease Code(s): N18.3 - CHRONIC KIDNEY DISEASE, STAGE 3 (MODERATE) Status: Acute Comment: improving, uncertain baseline creatinine (9) Anemia, normocytic normochromic Code(s): D64.9 - ANEMIA, UNSPECIFIED Status: Acute Comment: EGD and Colonoscopy without source of bleeding, hemoccult negative (10) Hyponatremia Code(s): E87.1 - HYPO-OSMOLALITY AND HYPONATREMIA Status: Acute (11) UTI (urinary tract infection) Status: Acute (12) Alcoholic cirrhosis of liver Code(s): K70.30 - ALCOHOLIC CIRRHOSIS OF LIVER WITHOUT ASCITES Status: Chronic Qualifiers: Ascites presence: with ascites Qualified Code(s): K70.31 - Alcoholic cirrhosis of liver with ascites (13) Diabetes type 2, controlled Code(s): E11.9 - TYPE 2 DIABETES MELLITUS WITHOUT COMPLICATIONS Status: Chronic - Plan Continue IV antibiotics -: Monitor H/H and transfuse as needed. -: Place PICC line for outpatient antibiotics. -: Start propranolol and lactulose. Hold of on spironolactone due to RUPERT -: Monitor renal function and electrolytes. Follow ascitis fluid lab test * .
[2019-01-02] MEDS: Propranolol 10 MG TAB PO SCH ×2 (16:53→21:13)
[2019-01-03] MEDS: Metoclopramide HCl 10 MG/2 ML VIAL IVP SCH ×3 (06:06→21:07)
[2019-01-03 06:39] LABS: #Basophils 0.1 thou/uL (0.0-0.2); #Eosinphils 0.1 thou/uL (0.0-0.7); #Lymphocytes 1.2 thou/uL (1.20-3.40); #Monocytes 0.4 thou/uL (0.11-0.59); #Neutrophils 2.9 thou/uL (1.40-6.50); %Basophils 1.1 % (0.0-1.0); %Eosinophils 1.3 % (0.0-10.0); %Lymphocytes 26.5 % (21.0-51.0); %Monocytes 9.2 % (0.0-10.0); %Neutrophils 61.9 % (42.0-75.0); Hemoglobin 7.3 g/dL (14.0-18.0); Mean Corpuscular HGB CONC 31.7 g/dL (32.0-36.0); Mean Corpuscular Hemoglobin 28.3 pg (27.0-31.0); Mean Corpuscular Volume 89.4 fL (78.0-98.0); Mean Platelet Volume 7.9 fL (7.4-10.4); Platelet Count 148 thou/uL (130-400); RBC Distribution Width 14.9 % (11.5-14.5); Red Blood Cell (RBC) Count 2.57 mill/uL (4.70-6.10); White Blood Cell (WBC) Count 4.7 thou/uL (4.8-10.8)
[2019-01-03 06:58] LABS: ALT (SGPT) 25 U/L (8-55); AST (SGOT) 32 U/L (5-34); Albumin 2.1 g/dL (3.5-5.0); Alkaline Phosphatase 285 U/L (40-150); Anion Gap 9 mmol/L (10-20); BUN (Urea Nitrogen) 22 mg/dL (8.4-25.7); Bilirubin, Total 0.5 mg/dL (0.2-1.2); Calc. Creatinine Clearance 64 mL/min (70-130); Calcium 7.6 mg/dL (7.8-10.44); Carbon Dioxide 22 mmol/L (22-29); Chloride 109 mmol/L (98-107); Estimated GFR-MDRD 54; Globulin 3.1 g/dL (2.4-3.5); Glucose 142 mg/dL (70-105); Protein, Total 5.2 g/dL (6.0-8.3); Sodium 136 mmol/L (136-145)
[2019-01-03] MEDS: Saccharomyces boulardii 250 MG CAP PO SCH (09:11)
[2019-01-03] MEDS: MEROPENEM 1 GM/50 ML 1 GM in Premix Bag 1 BAG IVPB SCH ×2 (09:11→20:50)
[2019-01-03] MEDS: guaiFENesin/DM ER PO SCH ×2 (09:11→20:47)
[2019-01-03] MEDS: Propranolol 10 MG TAB PO SCH ×3 (09:30→20:48)
--- NOTE | 2019-01-03 09:59 | PDOC.PN ---
- Subjective Encounter Start Date: 01/03/19 Encounter Start Time: 07:30 -: old records requested/rev Patient seen and examined. No new complaints. No overnight events - Objective Resuscitation Status - Order Detail: 12/23/18 15:15 Resuscitation Status Routine Resuscitation Status: FULL: Full Resuscitation MAR Reviewed: Yes Vital Signs & Weight: Vital Signs (12 hours) Temp Pulse Resp BP BP BP Pulse Ox 01/03/19 08:32 98.4 F 79 20 112/76 94/62 106/68 95 01/03/19 03:32 98.7 F 72 16 107/68 94 L 01/02/19 23:19 99.3 F 88 16 98/56 L 93 L Weight Admit Weight 163 lb 6.4 oz Weight 163 lb 6.4 oz I&O: 01/02/19 01/03/19 01/04/19 06:59 06:59 06:59 Intake Total 840 900 Output Total 2600 Balance 840 -1700 Result Diagrams: 01/03/19 06:12 01/03/19 06:12 Additional Labs: Accuchecks 01/03/19 01/02/19 01/02/19 05:16 21:18 11:35 POC Glucose 184 H 224 H 95 Phys Exam - Physical Examination Constitutional: NAD HEENT: PERRLA, moist MMs, sclera anicteric Neck: no JVD, supple Respiratory: no wheezing, no rales, no rhonchi Cardiovascular: RRR, no significant murmur, no rub Gastrointestinal: soft, non-tender, no distention, positive bowel sounds Musculoskeletal: no edema, pulses present Neurological: non-focal, normal sensation Lymphatic: no nodes Psychiatric: normal affect, A&O x 3 Skin: no rash, normal turgor Dx/Plan (1) Acute worsening of stage 3 chronic kidney disease Code(s): N18.3 - CHRONIC KIDNEY DISEASE, STAGE 3 (MODERATE) Status: Acute Comment: improving, uncertain baseline creatinine (2) Bacteremia, escherichia coli Code(s): R78.81 - BACTEREMIA Status: Acute Comment: On Meropenem since 2018 (3) Hyponatremia Code(s): E87.1 - HYPO-OSMOLALITY AND HYPONATREMIA Status: Acute (4) Sepsis secondary to UTI Code(s): A41.9 - SEPSIS, UNSPECIFIED ORGANISM; N39.0 - URINARY TRACT INFECTION, SITE NOT SPECIFIED Status: Acute (5) Sepsis with acute organ dysfunction Code(s): A41.9 - SEPSIS, UNSPECIFIED ORGANISM; R65.20 - SEVERE SEPSIS WITHOUT SEPTIC SHOCK Status: Acute (6) Anemia, normocytic normochromic Code(s): D64.9 - ANEMIA, UNSPECIFIED Status: Acute Comment: EGD and Colonoscopy without source of bleeding, hemoccult negative (7) Diabetes type 2, controlled Code(s): E11.9 - TYPE 2 DIABETES MELLITUS WITHOUT COMPLICATIONS Status: Chronic - Plan cont current plan of care, continue antibiotics * continue current medical treatment * symptomatic treatment * continue meropenam. Review of Systems - Review of Systems ENT: negative: Ear Pain, Ear Discharge, Nose Pain, Nose Discharge, Nose Congestion, Mouth Pain, Mouth Swelling, Throat Pain, Throat Swelling, Other Respiratory: negative: Cough, Dry, Shortness of Breath, Hemoptysis, SOB with Excertion, Pleuritic Pain, Sputum, Wheezing Cardiovascular: negative: chest pain, palpitations, orthopnea, paroxysmal nocturnal dyspnea, edema, light headedness, other Gastrointestinal: negative: Nausea, Vomiting, Abdominal Pain, Diarrhea, Constipation, Melena, Hematochezia, Other Genitourinary: negative: Dysuria, Frequency, Incontinence, Hematuria, Retention , Other Musculoskeletal: negative: Neck Pain, Shoulder Pain, Arm Pain, Back Pain, Hand Pain, Leg Pain, Foot Pain, Other - Medications/Allergies Allergies/Adverse Reactions: Allergies Allergy/AdvReac Type Severity Reaction Status Date / Time No Known Allergies Allergy Unverified 12/23/18 13:41 Medications: Current Medications Acetaminophen (Tylenol) 650 mg PO Q6H PRN PRN Reason: Mild Pain (1-3) Hydrocodone Bitart/Acetaminophen ([place] 5/325) 1 tab PO Q4H PRN PRN Reason: Moderate Pain (4-6) Last Admin: 01/01/19 22:45 Dose: 1 tab Artificial Tears (Tears Naturale) 2 drop EA EYE PRN PRN PRN Reason: Dry Eyes Benzonatate (Tessalon) 100 mg PO TIDPRN PRN PRN Reason: Cough Last Admin: 12/25/18 20:35 Dose: 100 mg Calcium Carbonate (Tums) 1,000 mg PO Q4H PRN PRN Reason: Heartburn or Indigestion Dextrose/Water (Dextrose 50%) 25 gm SLOW IVP PRN PRN PRN Reason: Hypoglycemia Glucagon (Glucagon) 1 mg IM PRN PRN PRN Reason: Hypoglycemia Guaifenesin (Robitussin Sf) 200 mg PO Q4H PRN PRN Reason: Cough Guaifenesin/Dextromethorphan (Mucinex Dm) 1 tab PO Q12HR [facility] Last Admin: 01/03/19 09:11 Dose: 1 tab Hydralazine HCl (Apresoline) 10 mg SLOW IVP Q4H PRN PRN Reason: SBP > 180 and HR < 70 Dextrose/Water (D5w) 1,000 mls @ 0 mls/hr IV .Q0M PRN PRN Reason: Hypoglycemia Meropenem 1 gm/ Device 50 mls @ 100 mls/hr IVPB 0900,2100 [facility] Last Admin: 01/03/19 09:11 Dose: 50 mls Insulin Human Lispro (Humalog) 0 units SC .MILD SLIDING SCALE PRN PRN Reason: Mild Correctional Scale Last Admin: 12/28/18 21:14 Dose: 3 unit Lactulose (Lactulose) 10 gm PO BID [facility] Last Admin: 01/03/19 09:09 Dose: 10 gm Loperamide HCl (Imodium) 2 mg PO PRN PRN PRN Reason: Diarrhea/Loose Stools Loratadine (Claritin) 10 mg PO DAILYPRN PRN PRN Reason: Sinus Symptoms Metoclopramide HCl (Reglan) 10 mg IVP Q8HR [facility] Last Admin: 01/03/19 06:06 Dose: 10 mg Mineral Oil/White Petrolatum (Eucerin Cream) 0 gm TOP BIDPRN PRN PRN Reason: Dry Skin Ondansetron HCl (Zofran Odt) 4 mg PO Q6H PRN PRN Reason: Nausea/Vomiting Last Admin: 12/25/18 08:33 Dose: 4 mg Ondansetron HCl (Zofran) 4 mg IVP Q6H PRN PRN Reason: Nausea/Vomiting Last Admin: 12/27/18 08:03 Dose: 4 mg Pantoprazole Sodium (Protonix) 40 mg PO DAILY [facility] Last Admin: 01/03/19 09:11 Dose: 40 mg Propranolol HCl (Inderal) 10 mg PO TID [facility] Last Admin: 01/03/19 09:30 Dose: 10 mg Saccharomyces Boulardii (Florastor) 250 mg PO DAILY [facility] Last Admin: 01/03/19 09:11 Dose: 250 mg Senna/Docusate Sodium (Senokot S) 2 tab PO BID PRN PRN Reason: Constipation Sodium Chloride (Craig Nasal [place] 0.65%) 0 ml EA NARE QIDPRN PRN PRN Reason: Nasal Congestion Sodium Chloride (Flush - Normal Saline) 10 ml IVF Q12HR [facility] Last Admin: 01/03/19 09:31 Dose: 10 ml Sodium Chloride (Flush - Normal Saline) 10 ml IVF PRN PRN PRN Reason: Saline Flush Throat Lozenges (Cepastat Lozenges) 1 len PO Q2H PRN PRN Reason: Sore Throat Zolpidem Tartrate (Ambien) 5 mg PO HSPRN PRN PRN Reason: Insomnia
--- NOTE | 2019-01-03 13:49 | SPC ---
SONOGRAPHIC GUIDED LEFT UPPER EXTREMITY PICC PLACEMENT: Date: 01/03/19 HISTORY: Infection. Need for long-term antibiotics. FINDINGS: After explaining the procedure and answering all questions, the left upper extremity was prepped and draped in the usual sterile fashion. Sterile technique, buffered local anesthesia, sonographic guidan ce, and a 22 gauge needle were used to carefully access the left cephalic vein. Standard technique wa s then used to place the tip of a 5 Thai single lumen PICC so that the tip lies at the level of the superior vena cava. The catheter was flushed and secured externally. The patient tolerated the proce dure well and was returned in unchanged condition. Fluoro Time: 0 seconds. IMPRESSION: Left upper extremity PICC is ready for use. POS: BST
[2019-01-04] MEDS: Metoclopramide HCl 10 MG/2 ML VIAL IVP SCH ×3 (05:31→21:01)
[2019-01-04] MEDS: MEROPENEM 1 GM/50 ML 1 GM in Premix Bag 1 BAG IVPB SCH ×2 (08:28→16:24)
[2019-01-04] MEDS: Saccharomyces boulardii 250 MG CAP PO SCH (08:30)
[2019-01-04] MEDS: guaiFENesin/DM ER PO SCH ×2 (08:30→20:09)
[2019-01-04] MEDS: Propranolol 10 MG TAB PO SCH ×3 (09:08→20:09)
--- NOTE | 2019-01-04 10:42 | PDOC.PN ---
- Subjective Encounter Start Date: 01/04/19 Encounter Start Time: 10:41 Subjective: No new problem -: feeling better. - Objective Resuscitation Status - Order Detail: 12/23/18 15:15 Resuscitation Status Routine Resuscitation Status: FULL: Full Resuscitation Vital Signs & Weight: Vital Signs (12 hours) Temp Pulse Resp BP BP Pulse Ox 01/04/19 08:00 98 01/04/19 07:47 98.0 F 66 18 121/79 98 01/04/19 05:14 97.9 F 62 16 113/71 97 01/04/19 00:48 97.9 F 66 16 99/59 L 99 Weight Admit Weight 163 lb 6.4 oz Weight 163 lb 6.4 oz I&O: 01/03/19 01/04/19 01/05/19 06:59 06:59 06:59 Intake Total 900 1180 Output Total 2600 Balance -1700 1180 Result Diagrams: 01/03/19 06:12 01/03/19 06:12 Additional Labs: Accuchecks 01/04/19 01/03/19 01/03/19 05:19 20:26 17:07 POC Glucose 100 201 H 167 H 01/03/19 11:53 POC Glucose 163 H Phys Exam - Physical Examination Constitutional: NAD afebrile. HEENT: PERRLA, moist MMs Neck: no JVD, supple Respiratory: no wheezing, no rales, no rhonchi fair air entry bilaterally Cardiovascular: RRR Gastrointestinal: soft, non-tender, positive bowel sounds Musculoskeletal: no edema, pulses present Neurological: non-focal, moves all 4 limbs Psychiatric: A&O x 3 Dx/Plan (1) Bacteremia, escherichia coli Code(s): R78.81 - BACTEREMIA Status: Acute Comment: On Meropenem since 2018 (2) Sepsis with acute organ dysfunction Code(s): A41.9 - SEPSIS, UNSPECIFIED ORGANISM; R65.20 - SEVERE SEPSIS WITHOUT SEPTIC SHOCK Status: Acute (3) Gastric ulcer Code(s): K25.9 - GASTRIC ULCER, UNSP ACUTE OR CHRONIC, W/O HEMOR OR PERF Status: Acute (4) Esophagitis Code(s): K20.9 - ESOPHAGITIS, UNSPECIFIED Status: Acute (5) Diarrhea Code(s): R19.7 - DIARRHEA, UNSPECIFIED Status: Acute (6) Physical deconditioning Code(s): R53.81 - OTHER MALAISE Status: Acute (7) Ascites due to alcoholic cirrhosis Code(s): K70.31 - ALCOHOLIC CIRRHOSIS OF LIVER WITH ASCITES Status: Acute Comment: S/p paracentesis on 01/02/2019 (8) Acute worsening of stage 3 chronic kidney disease Code(s): N18.3 - CHRONIC KIDNEY DISEASE, STAGE 3 (MODERATE) Status: Acute Comment: improving, uncertain baseline creatinine (9) Anemia, normocytic normochromic Code(s): D64.9 - ANEMIA, UNSPECIFIED Status: Acute Comment: EGD and Colonoscopy without source of bleeding, hemoccult negative (10) Hyponatremia Code(s): E87.1 - HYPO-OSMOLALITY AND HYPONATREMIA Status: Acute (11) UTI (urinary tract infection) Status: Acute (12) Alcoholic cirrhosis of liver Code(s): K70.30 - ALCOHOLIC CIRRHOSIS OF LIVER WITHOUT ASCITES Status: Chronic Qualifiers: Ascites presence: with ascites Qualified Code(s): K70.31 - Alcoholic cirrhosis of liver with ascites (13) Diabetes type 2, controlled Code(s): E11.9 - TYPE 2 DIABETES MELLITUS WITHOUT COMPLICATIONS Status: Chronic (14) Iron deficiency Code(s): E61.1 - IRON DEFICIENCY Status: Acute - Plan Replete serum iron with IV iron -: Start low dose aldactone. -: Monitor CMP and CBC. -: Continue IV meropenem. * .
[2019-01-04] MEDS ORDERED: Spironolactone 25 MG TAB PO SCH (10:45)
[2019-01-04] MEDS: Iron, Sodium Ferric Gluconate 250 MG in Sodium Chloride 0.9% 100 ML IVPB SCH (20:24)
[2019-01-05] MEDS: MEROPENEM 1 GM/50 ML 1 GM in Premix Bag 1 BAG IVPB SCH ×3 (00:51→17:14)
[2019-01-05] MEDS: Metoclopramide HCl 10 MG/2 ML VIAL IVP SCH ×3 (05:39→21:48)
[2019-01-05 06:16] LABS: #Basophils 0.1 thou/uL (0.0-0.2); #Eosinphils 0.1 thou/uL (0.0-0.7); #Lymphocytes 1.7 thou/uL (1.20-3.40); #Monocytes 0.4 thou/uL (0.11-0.59); #Neutrophils 2.6 thou/uL (1.40-6.50); %Eosinophils 2.6 % (0.0-10.0); %Lymphocytes 34.8 % (21.0-51.0); %Monocytes 7.7 % (0.0-10.0); %Neutrophils 53.9 % (42.0-75.0); Hemoglobin 7.6 g/dL (14.0-18.0); Mean Corpuscular HGB CONC 31.9 g/dL (32.0-36.0); Mean Corpuscular Hemoglobin 28.3 pg (27.0-31.0); Mean Corpuscular Volume 88.8 fL (78.0-98.0); Platelet Count 161 thou/uL (130-400); RBC Distribution Width 14.7 % (11.5-14.5); Red Blood Cell (RBC) Count 2.68 mill/uL (4.70-6.10); White Blood Cell (WBC) Count 4.9 thou/uL (4.8-10.8)
[2019-01-05 06:29] LABS: ALT (SGPT) 25 U/L (8-55); AST (SGOT) 34 U/L (5-34); Albumin 2.1 g/dL (3.5-5.0); Alkaline Phosphatase 293 U/L (40-150); Anion Gap 10 mmol/L (10-20); BUN (Urea Nitrogen) 21 mg/dL (8.4-25.7); Bilirubin, Total 0.5 mg/dL (0.2-1.2); Calc. Creatinine Clearance 62 mL/min (70-130); Calcium 7.8 mg/dL (7.8-10.44); Carbon Dioxide 20 mmol/L (22-29); Chloride 110 mmol/L (98-107); Estimated GFR-MDRD 52; Globulin 3.2 g/dL (2.4-3.5); Glucose 100 mg/dL (70-105); Potassium 4.2 mmol/L (3.5-5.1); Protein, Total 5.3 g/dL (6.0-8.3); Sodium 136 mmol/L (136-145)
[2019-01-05] MEDS: Propranolol 10 MG TAB PO SCH ×3 (08:51→20:14)
[2019-01-05] MEDS: guaiFENesin/DM ER PO SCH ×2 (08:53→20:14)
[2019-01-05] MEDS: Saccharomyces boulardii 250 MG CAP PO SCH (08:53)
[2019-01-05] MEDS: Spironolactone 25 MG TAB PO SCH (08:54)
[2019-01-05] MEDS: Iron, Sodium Ferric Gluconate 250 MG in Sodium Chloride 0.9% 100 ML IVPB SCH (10:39)
--- NOTE | 2019-01-05 12:03 | PDOC.PN ---
- Subjective Encounter Start Date: 01/05/19 Encounter Start Time: 12:01 Subjective: No new problem -: Awaiting outpatient antibiotic arrangements - Objective Resuscitation Status - Order Detail: 12/23/18 15:15 Resuscitation Status Routine Resuscitation Status: FULL: Full Resuscitation Vital Signs & Weight: Vital Signs (12 hours) Temp Pulse Resp BP BP BP Pulse Ox 01/05/19 11:47 98.0 F 66 18 110/76 97/63 95/66 93 L 01/05/19 08:19 98.0 F 62 16 122/81 97 01/05/19 08:00 97 01/05/19 04:00 97.8 F 63 20 109/68 94 L Weight Admit Weight 163 lb 6.4 oz Weight 163 lb 6.4 oz I&O: 01/04/19 01/05/19 01/06/19 06:59 06:59 06:59 Intake Total 1180 1790 Balance 1180 1790 Result Diagrams: 01/05/19 05:47 01/05/19 05:47 Additional Labs: Accuchecks 01/05/19 01/05/19 01/05/19 10:47 07:42 05:28 POC Glucose 117 H 111 H 162 H 01/04/19 01/04/19 01/04/19 20:14 16:23 11:24 POC Glucose 150 H 98 105 Phys Exam - Physical Examination Constitutional: NAD HEENT: moist MMs Neck: supple Respiratory: no wheezing, no rales, no rhonchi, clear to auscultation bilateral Cardiovascular: RRR Gastrointestinal: soft, non-tender, positive bowel sounds enlarged Musculoskeletal: no edema, pulses present Neurological: non-focal, moves all 4 limbs Psychiatric: A&O x 3 Dx/Plan (1) Bacteremia, escherichia coli Code(s): R78.81 - BACTEREMIA Status: Acute Comment: On Meropenem since 2018 (2) Sepsis with acute organ dysfunction Code(s): A41.9 - SEPSIS, UNSPECIFIED ORGANISM; R65.20 - SEVERE SEPSIS WITHOUT SEPTIC SHOCK Status: Acute (3) Gastric ulcer Code(s): K25.9 - GASTRIC ULCER, UNSP ACUTE OR CHRONIC, W/O HEMOR OR PERF Status: Acute (4) Esophagitis Code(s): K20.9 - ESOPHAGITIS, UNSPECIFIED Status: Acute (5) Diarrhea Code(s): R19.7 - DIARRHEA, UNSPECIFIED Status: Acute (6) Physical deconditioning Code(s): R53.81 - OTHER MALAISE Status: Acute (7) Ascites due to alcoholic cirrhosis Code(s): K70.31 - ALCOHOLIC CIRRHOSIS OF LIVER WITH ASCITES Status: Acute Comment: S/p paracentesis on 01/02/2019 (8) Acute worsening of stage 3 chronic kidney disease Code(s): N18.3 - CHRONIC KIDNEY DISEASE, STAGE 3 (MODERATE) Status: Acute Comment: improving, uncertain baseline creatinine (9) Anemia, normocytic normochromic Code(s): D64.9 - ANEMIA, UNSPECIFIED Status: Acute Comment: EGD and Colonoscopy without source of bleeding, hemoccult negative (10) Hyponatremia Code(s): E87.1 - HYPO-OSMOLALITY AND HYPONATREMIA Status: Acute (11) UTI (urinary tract infection) Status: Acute (12) Alcoholic cirrhosis of liver Code(s): K70.30 - ALCOHOLIC CIRRHOSIS OF LIVER WITHOUT ASCITES Status: Chronic Qualifiers: Ascites presence: with ascites Qualified Code(s): K70.31 - Alcoholic cirrhosis of liver with ascites (13) Diabetes type 2, controlled Code(s): E11.9 - TYPE 2 DIABETES MELLITUS WITHOUT COMPLICATIONS Status: Chronic (14) Iron deficiency Code(s): E61.1 - IRON DEFICIENCY Status: Acute - Plan For discharge once outpatient antibiotic therapy is concluded -: D/W ID * .
[2019-01-06] MEDS: MEROPENEM 1 GM/50 ML 1 GM in Premix Bag 1 BAG IVPB SCH ×2 (00:17→09:33)
[2019-01-06] MEDS: Metoclopramide HCl 10 MG/2 ML VIAL IVP SCH ×2 (06:10→13:29)
[2019-01-06] MEDS: Saccharomyces boulardii 250 MG CAP PO SCH (09:33)
[2019-01-06] MEDS: guaiFENesin/DM ER PO SCH (09:33)
[2019-01-06] MEDS: Propranolol 10 MG TAB PO SCH ×2 (09:34→14:53)
[2019-01-06] MEDS: Spironolactone 25 MG TAB PO SCH (09:34)
[2019-01-06 14:30] VITALS: TEMP 97.8
[2019-01-06 14:55] VITALS: BP 116/73
== END 2019-01-06 16:30 | disposition home or self-care (01) | DRG 872 ==
LOC: ERS 11:55 → 2SW 13:20 → OBSVTOIN 13:20 → T4-B 12-24 12:21
PROVIDERS: ADMIT Internal Medicine; ATTEND Internal Medicine
PROC: 30233N1 Transfusion of Nonautologous Red Blood Cells into Peripheral Vein, Percutaneous Approach (ICD-10-PCS; principal; 2018-12-25)
PROC: 0DB68ZX Excision of Stomach, Via Natural or Artificial Opening Endoscopic, Diagnostic (ICD-10-PCS; 2018-12-26)
PROC: 0DJD8ZZ Inspection of Lower Intestinal Tract, Via Natural or Artificial Opening Endoscopic (ICD-10-PCS; 2018-12-28)
PROC: 02HV33Z Insertion of Infusion Device into Superior Vena Cava, Percutaneous Approach (ICD-10-PCS; 2019-01-02)
PROC: 0W9G3ZZ Drainage of Peritoneal Cavity, Percutaneous Approach (ICD-10-PCS; 2019-01-02)
DX: A41.51 Sepsis due to Escherichia coli [E. coli] (principal); N17.9 Acute kidney failure, unspecified; K22.10 Ulcer of esophagus without bleeding; E87.1 Hypo-osmolality and hyponatremia; N12 Tubulo-interstitial nephritis, not specified as acute or chronic; E11.22 Type 2 diabetes mellitus with diabetic chronic kidney disease; K25.7 Chronic gastric ulcer without hemorrhage or perforation; K70.31 Alcoholic cirrhosis of liver with ascites; R65.20 Severe sepsis without septic shock; K57.30 Diverticulosis of large intestine without perforation or abscess without bleeding; D63.1 Anemia in chronic kidney disease; N18.3 Chronic kidney disease, stage 3 (moderate); E11.40 Type 2 diabetes mellitus with diabetic neuropathy, unspecified; D69.59 Other secondary thrombocytopenia; K64.9 Unspecified hemorrhoids; E61.1 Iron deficiency; Z16.12 Extended spectrum beta lactamase (ESBL) resistance; F17.210 Nicotine dependence, cigarettes, uncomplicated; Z79.84 Long term (current) use of oral hypoglycemic drugs
CPT/HCPCS: 36415; 36416; 36430; 36569; 49083; 71045; 74018; 74176; 76700; 80048; 80053; 80069; 80074; 81003; 81015; 82042; 82274; 82570; 82607; 82728; 82746; 83540; 83550; 83605; 84156; 85025; 85046; 85060; 85610; 86850; 86900; 86901; 87040; 87070; 87077; 87086; 87149; 87186; 87205; 87324; 87449; 87804; 87899; 88305; 88312; 89051; 93005; 96365; 96366; 96367; 96375; J0696; J1644; J2185; J2405; J2543; J2704; J2765; J2916; J3370; J3490; J7050; P9016; Q0162

== ENCOUNTER 2019-02-24 09:08 | Emergency (ER) | payer SELFPAY ==
--- NOTE | 2019-02-24 09:51 | CT ---
CT brain HISTORY: recent onset seizure. Noncontrast enhanced CT images of the brain obtained. The brain is unremarkable. No evidence of intra cranial masses, hemorrhages, strokes or contusion seen. IMPRESSION: Normal CT brain.
[2019-02-24 09:54] LABS: #Eosinphils 0.1 thou/uL (0.0-0.7); #Lymphocytes 0.7 thou/uL (1.20-3.40); #Monocytes 0.2 thou/uL (0.11-0.59); #Neutrophils 2.1 thou/uL (1.40-6.50); %Basophils 0.7 % (0.0-1.0); %Eosinophils 2.4 % (0.0-10.0); %Lymphocytes 22.8 % (21.0-51.0); %Monocytes 4.8 % (0.0-10.0); %Neutrophils 69.3 % (42.0-75.0); Hemoglobin 11.1 g/dL (14.0-18.0); Mean Corpuscular HGB CONC 33.9 g/dL (32.0-36.0); Mean Corpuscular Hemoglobin 28.9 pg (27.0-31.0); Mean Corpuscular Volume 85.3 fL (78.0-98.0); Mean Platelet Volume 8.9 fL (7.4-10.4); Platelet Count 60 thou/uL (130-400); RBC Distribution Width 14.3 % (11.5-14.5); Red Blood Cell (RBC) Count 3.83 mill/uL (4.70-6.10); White Blood Cell (WBC) Count 3.1 thou/uL (4.8-10.8)
[2019-02-24 09:57] LABS: INR-International Normal Ratio 1.3; PTT 34.4 SEC (22.9-36.1); Prothrombin Time 16.2 SEC (12.0-14.7)
--- NOTE | 2019-02-24 09:59 | RAD ---
EXAM: CHEST ONE VIEW HISTORY: Seizure. Patient appears post ictal upon EMS arrival. Elevated blood sugar. COMPARISON: 12/23/2018 FINDINGS: The cardiac silhouette and pulmonary vasculature is within normal limits. There are linear increased densities left lung base probably related to superimposition of structures and minimal atelectasis. The lungs are otherwise clear. The osseous structures are intact. IMPRESSION: No acute cardiopulmonary process.
[2019-02-24 10:02] LABS: Bilirubin Negative (Negative); Blood, Urine Large (Negative); Clarity CLEAR (Clear); Glucose, Urine (Dipstick) >=1000 mg/dL (Negative); Leukocyte Negative (Negative); Nitrite Negative (Negative); Protein, Urine (Dipstick) Negative (Neg-Trace); Specific Gravity, Urine 1.024 (1.002-1.036); Urobilinogen 0.2 mg/dL (0.2-1.0)
[2019-02-24 10:04] LABS: Bacteria/HPF None Seen HPF (None Seen); Hyaline Casts/LPF 0-3 HYALINE CAST LPF (0-3 Hyaline); Pathc Cast-AUWi Flag 0.27 (0-2.49); RBC/HPF 21-50 HPF (0-3); Squamous Epithelial 0-3 HPF (0-3); WBC/HPF 0-3 HPF (0-3)
[2019-02-24 10:13] LABS: ALT (SGPT) 11 U/L (8-55); AST (SGOT) 12 U/L (5-34); Acetaminophen Less than 6.0 mcg/mL (10.0-30.0); Albumin 3.5 g/dL (3.5-5.0); Alcohol Less than 10 mg/dL (Less than 10); Alkaline Phosphatase 194 U/L (40-150); Anion Gap 16 mmol/L (10-20); BUN (Urea Nitrogen) 13 mg/dL (8.4-25.7); Bilirubin, Total 1.1 mg/dL (0.2-1.2); Calc. Creatinine Clearance 0 mL/min (70-130); Calcium 8.5 mg/dL (7.8-10.44); Carbon Dioxide 16 mmol/L (22-29); Chloride 107 mmol/L (98-107); Estimated GFR-MDRD 52; Globulin 3.6 g/dL (2.4-3.5); Glucose 515 mg/dL (70-105); Potassium 3.5 mmol/L (3.5-5.1); Protein, Total 7.1 g/dL (6.0-8.3); Salicylate Less than 8.0 mg/dL (15.0-30.0); Sodium 135 mmol/L (136-145)
[2019-02-24 10:14] LABS: Amphetamine Not Detected (NotDetected); Barbiturates Screen Not Detected (NotDetected); Benzodiazepine Screen Not Detected (NotDetected); Cocaine Metabolite Screen Not Detected (NotDetected); Medtox Control Line Valid? VALID (VALID); Medtox Reader # READER 4; Methadone Not Detected (NotDetected); Methamphetamine Not Detected (NotDetected); Opiate Screen Not Detected (NotDetected); Oxycodone Screen Not Detected (NotDetected); Phencyclidine (PCP) Not Detected (NotDetected); THC/Cannabinoid Screen Not Detected (NotDetected); Tricyclic Screen Not Detected (NotDetected)
[2019-02-24] MEDS ORDERED: Insulin Regular 300 UNITS/3 ML VIAL ONE (10:28)
--- NOTE | 2019-02-28 11:04 | EKG ---
Test Reason : Blood Pressure : / mmHG Vent. Rate : 092 BPM Atrial Rate : 092 BPM P-R Int : 148 ms QRS Dur : 104 ms QT Int : 410 ms P-R-T Axes : 049 -55 033 degrees QTc Int : 507 ms Normal sinus rhythm Left axis deviation Pulmonary disease pattern Prolonged QT Abnormal ECG Confirmed by MAYRA DING ([id number]), newspaper copy editor HARJINDER SNEED ([id number]) on 02/28/2019 11:03:29 AM Referred By: Confirmed By:MAYRA DING
== END 2019-02-24 12:15 | disposition home or self-care (01) ==
LOC: ERS 09:08
DX: R56.9 Unspecified convulsions (principal); E11.65 Type 2 diabetes mellitus with hyperglycemia; F17.210 Nicotine dependence, cigarettes, uncomplicated; Z79.84 Long term (current) use of oral hypoglycemic drugs
CPT/HCPCS: 36415; 36416; 70450; 71045; 80053; 80306; 80307; 81003; 81015; 82010; 82550; 84484; 85025; 85610; 85730; 93005; 96361; 96374; J1815

== ENCOUNTER 2019-03-25 15:27 | Emergency (ER) | payer SELFPAY ==
[2019-03-25 15:57] LABS: #Eosinphils 0.1 thou/uL (0.0-0.7); #Lymphocytes 1.3 thou/uL (1.20-3.40); #Monocytes 0.3 thou/uL (0.11-0.59); #Neutrophils 2.9 thou/uL (1.40-6.50); %Basophils 0.4 % (0.0-1.0); %Eosinophils 2.3 % (0.0-10.0); %Lymphocytes 28.7 % (21.0-51.0); %Monocytes 6.7 % (0.0-10.0); Hemoglobin 12.3 g/dL (14.0-18.0); Mean Corpuscular HGB CONC 34.5 g/dL (32.0-36.0); Mean Corpuscular Hemoglobin 28.8 pg (27.0-31.0); Mean Corpuscular Volume 83.6 fL (78.0-98.0); Mean Platelet Volume 8.3 fL (7.4-10.4); Platelet Count 76 thou/uL (130-400); RBC Distribution Width 13.4 % (11.5-14.5); Red Blood Cell (RBC) Count 4.27 mill/uL (4.70-6.10); White Blood Cell (WBC) Count 4.7 thou/uL (4.8-10.8)
[2019-03-25 16:15] LABS: Magnesium 1.7 mg/dL (1.6-2.6)
[2019-03-25 16:17] LABS: Calcium 9.5 mg/dL (7.8-10.44); Chloride 102 mmol/L (98-107); Potassium 3.8 mmol/L (3.5-5.1); Sodium 131 mmol/L (136-145)
[2019-03-25 16:24] LABS: Albumin 3.9 g/dL (3.5-5.0)
[2019-03-25 16:27] LABS: Globulin 3.3 g/dL (2.4-3.5); Glucose 472 mg/dL (70-105); Protein, Total 7.2 g/dL (6.0-8.3)
[2019-03-25 16:28] LABS: Carbon Dioxide 22 mmol/L (22-29)
[2019-03-25 16:29] LABS: Alkaline Phosphatase 186 U/L (40-150); Bilirubin, Total 1.1 mg/dL (0.2-1.2)
[2019-03-25 16:30] LABS: Calc. Creatinine Clearance 0 mL/min (70-130); Estimated GFR-MDRD 64
[2019-03-25 16:31] LABS: BUN (Urea Nitrogen) 12 mg/dL (8.4-25.7)
[2019-03-25 16:32] LABS: AST (SGOT) 18 U/L (5-34)
[2019-03-25 16:33] LABS: ALT (SGPT) 18 U/L (8-55)
[2019-03-25 16:42] LABS: Anion Gap 11 mmol/L (10-20)
[2019-03-25] MEDS ORDERED: Insulin Regular 300 UNITS/3 ML VIAL ONE (19:34)
== END 2019-03-25 20:53 | disposition home or self-care (01) ==
LOC: ERS 15:27
DX: E11.65 Type 2 diabetes mellitus with hyperglycemia (principal); F17.210 Nicotine dependence, cigarettes, uncomplicated; Z79.84 Long term (current) use of oral hypoglycemic drugs
CPT/HCPCS: 36415; 36416; 80053; 82010; 83735; 84100; 85025; 96361; 96374; J1815

== ENCOUNTER 2020-12-27 02:48 | Emergency (ER) | payer BC, SELFPAY ==
[2020-12-27 03:28] LABS: #Basophils 0.1 thou/uL (0.0-0.2); #Eosinphils 0.1 thou/uL (0.0-0.7); #Lymphocytes 0.7 thou/uL (1.20-3.40); #Monocytes 0.3 thou/uL (0.11-0.59); #Neutrophils 2.6 thou/uL (1.40-6.50); %Basophils 1.8 % (0.0-1.0); %Eosinophils 1.7 % (0.0-10.0); %Lymphocytes 19.2 % (21.0-51.0); %Monocytes 8.9 % (0.0-10.0); %Neutrophils 68.4 % (42.0-75.0); Mean Corpuscular HGB CONC 34.7 g/dL (32.0-36.0); Mean Corpuscular Hemoglobin 32.6 pg (27.0-31.0); Mean Platelet Volume 7.1 fL (7.4-10.4); Platelet Count 49 thou/uL (130-400); RBC Distribution Width 14.4 % (11.5-14.5); Red Blood Cell (RBC) Count 3.99 mill/uL (4.70-6.10); White Blood Cell (WBC) Count 3.8 thou/uL (4.8-10.8)
[2020-12-27 03:49] LABS: ALT (SGPT) 36 U/L (8-55); AST (SGOT) 72 U/L (5-34); Albumin 3.4 g/dL (3.5-5.0); Alkaline Phosphatase 189 U/L (40-110); Anion Gap 14 mmol/L (10-20); BUN (Urea Nitrogen) 9 mg/dL (8.4-25.7); Bilirubin, Total 2.1 mg/dL (0.2-1.2); CK (CPK) 296 U/L (30-200); Calc. Creatinine Clearance 0 mL/min (70-130); Calcium 8.5 mg/dL (7.8-10.44); Carbon Dioxide 23 mmol/L (22-29); Chloride 103 mmol/L (98-107); Globulin 4.1 g/dL (2.4-3.5); Glucose 250 mg/dL (70-105); Potassium 3.5 mmol/L (3.5-5.1); Protein, Total 7.5 g/dL (6.0-8.3); Sodium 136 mmol/L (136-145)
[2020-12-27 04:05] LABS: Bacteria/HPF None Seen HPF (None Seen); Bilirubin Negative (Negative); Blood, Urine 2+ (Negative); Clarity Clear (Clear); Glucose, Urine (Dipstick) >=1000 mg/dL (Negative); Ketone, Urine Negative (Negative); Leukocyte Negative Leu/uL (Negative); Nitrite Negative (Negative); Protein, Urine (Dipstick) 30 mg/dL (Neg-Trace); Specific Gravity, Urine 1.006 (1.002-1.036); Squamous Epithelial 0-3 HPF (0-3); Urobilinogen Normal mg/dL (Less than 2); WBC/HPF 0-3 HPF (0-3)
== END 2020-12-27 04:44 | disposition home or self-care (01) ==
LOC: ERS 02:48
DX: R25.2 Cramp and spasm (principal); D72.819 Decreased white blood cell count, unspecified; R79.89 Other specified abnormal findings of blood chemistry; D69.6 Thrombocytopenia, unspecified; E11.9 Type 2 diabetes mellitus without complications; F17.210 Nicotine dependence, cigarettes, uncomplicated; Z79.84 Long term (current) use of oral hypoglycemic drugs
CPT/HCPCS: 71045; 80053; 81003; 81015; 82550; 84484; 85025; 93005

== ENCOUNTER 2021-01-17 09:29 | Emergency (ER) | payer BC ==
[2021-01-17] MEDS ORDERED: Boostrix 0.5 ML (Tdap) VIAL ONE (10:20)
[2021-01-17] MEDS ORDERED: Bacitracin 1 PK ONE (10:20)
== END 2021-01-17 10:32 | disposition home or self-care (01) ==
LOC: ERS 09:29
DX: S80.12XA Contusion of left lower leg, initial encounter (principal); E11.9 Type 2 diabetes mellitus without complications; F17.210 Nicotine dependence, cigarettes, uncomplicated; W22.8XXA Striking against or struck by other objects, initial encounter
CPT/HCPCS: 90471; 90715

== ENCOUNTER 2021-03-12 17:33 | Inpatient (IN) | payer BC ==
[2021-03-12 18:18] LABS: #Eosinphils 0.1 thou/uL (0.0-0.7); #Lymphocytes 0.9 thou/uL (1.20-3.40); #Monocytes 0.4 thou/uL (0.11-0.59); #Neutrophils 4.1 thou/uL (1.40-6.50); %Basophils 0.4 % (0.0-1.0); %Eosinophils 1.1 % (0.0-10.0); %Monocytes 6.3 % (0.0-10.0); %Neutrophils 75.2 % (42.0-75.0); Mean Corpuscular HGB CONC 36.1 g/dL (32.0-36.0); Mean Corpuscular Hemoglobin 34.3 pg (27.0-31.0); Mean Corpuscular Volume 95.3 fL (78.0-98.0); Mean Platelet Volume 7.9 fL (7.4-10.4); Platelet Count 55 thou/uL (130-400); RBC Distribution Width 13.4 % (11.5-14.5); Red Blood Cell (RBC) Count 3.51 mill/uL (4.70-6.10); White Blood Cell (WBC) Count 5.5 thou/uL (4.8-10.8)
[2021-03-12 18:25] LABS: INR-International Normal Ratio 1.2; PTT 32.7 sec (22.9-36.1); Prothrombin Time 15.6 sec (12.0-14.7)
[2021-03-12 18:48] LABS: ALT (SGPT) 28 U/L (8-55); AST (SGOT) 73 U/L (5-34); Albumin 3.2 g/dL (3.5-5.0); Alkaline Phosphatase 164 U/L (40-110); Anion Gap 21 mmol/L (10-20); BUN (Urea Nitrogen) 10 mg/dL (8.4-25.7); Bilirubin, Total 2.8 mg/dL (0.2-1.2); Calc. Creatinine Clearance 0 mL/min (70-130); Calcium 8.3 mg/dL (7.8-10.44); Carbon Dioxide 14 mmol/L (22-29); Chloride 96 mmol/L (98-107); Glucose 163 mg/dL (70-105); Potassium 3.3 mmol/L (3.5-5.1); Protein, Total 7.2 g/dL (6.0-8.3); Sodium 128 mmol/L (136-145)
[2021-03-12] MEDS ORDERED: levETIRAcetam in NS 100 ML ONE (18:59)
[2021-03-12] MEDS ORDERED: Cefepime 2 GM VIAL ONE (18:59)
[2021-03-12 19:30] LABS: Acetaminophen Less than 6.0 mcg/mL (10.0-30.0); Alcohol Less than 10 mg/dL (Less than 10); Salicylate Less than 8.0 mg/dL (15.0-30.0)
[2021-03-12 20:03] LABS: Bacteria/HPF Rare-Few HPF (None Seen); Bilirubin Negative (Negative); Blood, Urine 3+ (Negative); Clarity Clear (Clear); Glucose, Urine (Dipstick) 100 mg/dL (Negative); Ketone, Urine Negative (Negative); Leukocyte Negative Leu/uL (Negative); Nitrite Negative (Negative); Protein, Urine (Dipstick) 30 mg/dL (Neg-Trace); RBC/HPF Greater than 50 HPF (0-3); Specific Gravity, Urine 1.008 (1.002-1.036); Squamous Epithelial None Seen HPF (0-3); Urobilinogen Normal mg/dL (Less than 2); pH, Urine 6.5 (5.0-9.0)
[2021-03-12] MEDS ORDERED: Boostrix 0.5 ML (Tdap) VIAL ONE ×2 (20:14→20:25)
[2021-03-12] MEDS ORDERED: Vancomycin 1 GM/200 ML BAG ONE (20:14)
[2021-03-12 20:28] LABS: Amphetamine Not Detected (NotDetected); Barbiturates Screen Not Detected (NotDetected); Benzodiazepine Screen Not Detected (NotDetected); Cocaine Metabolite Screen Not Detected (NotDetected); Medtox Control Line Valid? VALID (VALID); Medtox Reader # READER 4; Methadone Not Detected (NotDetected); Methamphetamine Not Detected (NotDetected); Opiate Screen Not Detected (NotDetected); Oxycodone Screen Not Detected (NotDetected); Phencyclidine (PCP) Not Detected (NotDetected); THC/Cannabinoid Screen Not Detected (NotDetected); Tricyclic Screen Not Detected (NotDetected)
[2021-03-12] MEDS ORDERED: Dextrose 50% Abboject 50 ML SYRINGE SLOW IVP PRN (21:14)
[2021-03-12] MEDS ORDERED: Acetaminophen 325 MG TAB PO PRN (21:14)
[2021-03-12] MEDS ORDERED: Dextrose 5% in Water 1,000 ML IV PRN (21:14)
[2021-03-12] MEDS ORDERED: Acetaminophen 650 MG Suppository PR PRN (21:14)
[2021-03-12] MEDS ORDERED: HumaLOG 300 UNITS/3 ML VIAL SC PRN ×2 (21:14)
[2021-03-12 21:27] VITALS: BMI 26.6
[2021-03-12] MEDS ORDERED: Electrolyte Replacement Protocol 1 EACH FS SCH (21:30)
[2021-03-12] MEDS ORDERED: Potassium Chloride 20 MEQ TAB PO SCH (21:30)
[2021-03-12 21:39] LABS: Lactic Acid 3.5 mmol/L (0.5-2.2)
[2021-03-12] MEDS: metroNIDAZOLE 500 MG in Premix Bag 1 BAG IVPB SCH (22:51)
[2021-03-13] MEDS ORDERED: Cefepime 2 GM in Sodium Chloride 0.9% 100 ML IVPB SCH (03:00)
[2021-03-13 04:50] LABS: #Eosinphils 0.1 thou/uL (0.0-0.7); #Lymphocytes 0.7 thou/uL (1.20-3.40); #Monocytes 0.3 thou/uL (0.11-0.59); #Neutrophils 2.6 thou/uL (1.40-6.50); %Basophils 0.4 % (0.0-1.0); %Eosinophils 2.2 % (0.0-10.0); %Monocytes 9.2 % (0.0-10.0); %Neutrophils 69.3 % (42.0-75.0); Hemoglobin 10.4 g/dL (14.0-18.0); Mean Corpuscular HGB CONC 35.6 g/dL (32.0-36.0); Mean Corpuscular Volume 95.5 fL (78.0-98.0); Mean Platelet Volume 8.4 fL (7.4-10.4); Platelet Count 46 thou/uL (130-400); RBC Distribution Width 13.4 % (11.5-14.5); Red Blood Cell (RBC) Count 3.06 mill/uL (4.70-6.10); White Blood Cell (WBC) Count 3.7 thou/uL (4.8-10.8)
[2021-03-13 05:07] LABS: Anion Gap 10 mmol/L (10-20); BUN (Urea Nitrogen) 8 mg/dL (8.4-25.7); Calc. Creatinine Clearance 114 mL/min (70-130); Calcium 7.6 mg/dL (7.8-10.44); Carbon Dioxide 22 mmol/L (22-29); Chloride 105 mmol/L (98-107); Glucose 93 mg/dL (70-105); Magnesium 1.4 mg/dL (1.6-2.6); Potassium 3.4 mmol/L (3.5-5.1); Sodium 134 mmol/L (136-145)
[2021-03-13] MEDS ORDERED: Potassium Chloride 20 MEQ TAB PO SCH (05:30)
[2021-03-13] MEDS ORDERED: Magnesium 2 GM/50 ML 2 GM in Premix Bag 1 BAG IVPB SCH (05:45)
[2021-03-13] MEDS: Sodium Chloride 0.9% 1,000 ML IV SCH ×2 (06:41→17:45)
[2021-03-13] MEDS: metroNIDAZOLE 500 MG in Premix Bag 1 BAG IVPB SCH (06:42)
[2021-03-13] MEDS ORDERED: VANCOMYCIN 1.25 GM/250 ML BAG 1.25 GM in Premix Bag 1 BAG IVPB SCH (08:00)
[2021-03-13] MEDS ORDERED: Enoxaparin Sodium 40 MG/0.4 ML SYRINGE SC SCH (09:00)
[2021-03-13] MEDS ORDERED: Famotidine 20 MG TAB PO SCH (09:00)
[2021-03-13] MEDS: Lactinex Tablet PO SCH (09:47)
[2021-03-13] MEDS: Clindamycin/D5W 600 MG in Premix Bag 1 BAG IVPB SCH ×2 (09:47→17:45)
[2021-03-13 14:48] LABS: SARS-CoV-2 PCR by NAA Not Detected (NotDetected)
[2021-03-13] MEDS ORDERED: levETIRAcetam in NS 1,000 MG in Premix Bag 1 BAG IVPB SCH (15:15)
[2021-03-13] MEDS: levETIRAcetam 500 MG TAB PO SCH (20:19)
[2021-03-14] MEDS: Sodium Chloride 0.9% 1,000 ML IV SCH ×2 (02:18→07:24)
[2021-03-14] MEDS: Clindamycin/D5W 600 MG in Premix Bag 1 BAG IVPB SCH ×2 (02:18→09:22)
[2021-03-14 05:07] LABS: #Eosinphils 0.1 thou/uL (0.0-0.7); #Monocytes 0.4 thou/uL (0.11-0.59); #Neutrophils 2.2 thou/uL (1.40-6.50); %Basophils 0.3 % (0.0-1.0); %Eosinophils 2.6 % (0.0-10.0); %Lymphocytes 27.2 % (21.0-51.0); %Monocytes 10.2 % (0.0-10.0); %Neutrophils 59.7 % (42.0-75.0); Hemoglobin 10.6 g/dL (14.0-18.0); Mean Corpuscular Hemoglobin 33.9 pg (27.0-31.0); Mean Corpuscular Volume 96.8 fL (78.0-98.0); Platelet Count 50 thou/uL (130-400); RBC Distribution Width 13.7 % (11.5-14.5); Red Blood Cell (RBC) Count 3.12 mill/uL (4.70-6.10); White Blood Cell (WBC) Count 3.7 thou/uL (4.8-10.8)
[2021-03-14 05:17] LABS: Anion Gap 14 mmol/L (10-20); BUN (Urea Nitrogen) 9 mg/dL (8.4-25.7); Calc. Creatinine Clearance 102 mL/min (70-130); Calcium 7.3 mg/dL (7.8-10.44); Carbon Dioxide 19 mmol/L (22-29); Chloride 106 mmol/L (98-107); Glucose 99 mg/dL (70-105); Magnesium 1.2 mg/dL (1.6-2.6); Potassium 3.5 mmol/L (3.5-5.1); Sodium 135 mmol/L (136-145)
[2021-03-14] MEDS ORDERED: Magnesium Sulfate 4 GM in Sodium Chloride 0.9% 250 ML 250 ML IVPB SCH (06:30)
[2021-03-14] MEDS ORDERED: Potassium Chloride 20 MEQ TAB PO SCH (06:30)
[2021-03-14 07:26] LABS: Vancomycin, Trough Less than 1.1 ug/mL
[2021-03-14] MEDS: Lactinex Tablet PO SCH (09:22)
[2021-03-14] MEDS: levETIRAcetam 500 MG TAB PO SCH (09:22)
[2021-03-14 11:50] VITALS: TEMP 98.2
[2021-03-14] MEDS ORDERED: hydrALAZINE 20 MG/ML VIAL SLOW IVP SCH (14:00)
[2021-03-14 14:26] VITALS: BP 177/97
== END 2021-03-14 15:50 | disposition home or self-care (01) | DRG 101 ==
LOC: ERS 17:33 → 2SE 20:25
PROVIDERS: ADMIT Student in an Organized Health Care Education/Training Program; ATTEND Hospitalist
DX: G40.909 Epilepsy, unspecified, not intractable, without status epilepticus (principal); E87.2 Acidosis; N17.9 Acute kidney failure, unspecified; E87.1 Hypo-osmolality and hyponatremia; K76.6 Portal hypertension; Z20.822 Contact with and (suspected) exposure to COVID-19; N18.30 Chronic kidney disease, stage 3 unspecified; E87.6 Hypokalemia; E83.42 Hypomagnesemia; D69.59 Other secondary thrombocytopenia; K70.31 Alcoholic cirrhosis of liver with ascites; G93.89 Other specified disorders of brain; F10.120 Alcohol abuse with intoxication, uncomplicated; E11.22 Type 2 diabetes mellitus with diabetic chronic kidney disease; Z87.891 Personal history of nicotine dependence
CPT/HCPCS: 36415; 36416; 70450; 70486; 71045; 72125; 76705; 80048; 80053; 80202; 80306; 80307; 81003; 81015; 82140; 82274; 83605; 83735; 84146; 84443; 85025; 85610; 85652; 85730; 86140; 87040; 90471; 90715; 93005; 95712; 95819; 95957; 96365; 96367; J0360; J0692; J1815; J1953; J3370; J3475; J3490; J7050; U0003; U0005

== ENCOUNTER 2021-09-26 09:51 | Inpatient (IN) | payer BC ==
[2021-09-26] MEDS ORDERED: Pantoprazole 40 MG VIAL ONE ×2 (10:03→11:59)
[2021-09-26] MEDS ORDERED: Ondansetron PF 4 MG/2 ML Vial ONE ×2 (10:04→14:29)
[2021-09-26] MEDS ORDERED: Octreotide Acetate 50 MCG/ML AMP ONE (10:04)
[2021-09-26 10:12] LABS: #Lymphocytes 1.5 thou/uL (1.20-3.40); #Monocytes 0.9 thou/uL (0.11-0.59); #Neutrophils 14.8 thou/uL (1.40-6.50); %Basophils 0.2 % (0.0-1.0); %Eosinophils 0.2 % (0.0-10.0); %Lymphocytes 8.6 % (21.0-51.0); %Monocytes 5.4 % (0.0-10.0); %Neutrophils 85.6 % (42.0-75.0); Hemoglobin 7.6 g/dL (14.0-18.0); Mean Corpuscular HGB CONC 33.2 g/dL (32.0-36.0); Mean Corpuscular Hemoglobin 31.5 pg (27.0-31.0); Platelet Count 139 thou/uL (130-400); RBC Distribution Width 13.3 % (11.5-14.5); Red Blood Cell (RBC) Count 2.42 mill/uL (4.70-6.10); White Blood Cell (WBC) Count 17.2 thou/uL (4.8-10.8)
[2021-09-26] MEDS ORDERED: Octreotide Acetate 1,250 MCG in Sodium Chloride 0.9% 250 ML 250 ML IVPB SCH (10:15)
[2021-09-26 10:23] LABS: INR-International Normal Ratio 1.7; Prothrombin Time 20.6 sec (12.0-14.7)
[2021-09-26 10:24] LABS: PTT 36.6 sec (22.9-36.1)
[2021-09-26 10:30] LABS: ALT (SGPT) 19 U/L (8-55); AST (SGOT) 37 U/L (5-34); Albumin 2.3 g/dL (3.5-5.0); Alkaline Phosphatase 120 U/L (40-110); Anion Gap 17 mmol/L (10-20); BUN (Urea Nitrogen) 27 mg/dL (8.4-25.7); Bilirubin, Total 4.4 mg/dL (0.2-1.2); CK (CPK) 138 U/L (30-200); Calc. Creatinine Clearance 0 mL/min (70-130); Calcium 7.6 mg/dL (7.8-10.44); Carbon Dioxide 16 mmol/L (22-29); Chloride 104 mmol/L (98-107); Globulin 3.2 g/dL (2.4-3.5); Glucose 233 mg/dL (70-105); Potassium 5.4 mmol/L (3.5-5.1); Protein, Total 5.5 g/dL (6.0-8.3); Sodium 132 mmol/L (136-145)
[2021-09-26 10:51] LABS: CKMB 2.4 ng/mL (0-6.6)
[2021-09-26] MEDS ORDERED: HumaLOG 300 UNITS/3 ML VIAL SC PRN (11:15)
[2021-09-26] MEDS ORDERED: Dextrose 5% in Water 1,000 ML IV PRN (11:15)
[2021-09-26] MEDS ORDERED: Dextrose 50% Abboject 50 ML SYRINGE SLOW IVP PRN (11:15)
[2021-09-26] MEDS ORDERED: Phytonadione 10 MG in Sodium Chloride 0.9% 50 ML IVPB SCH (11:15)
[2021-09-26] MEDS ORDERED: Lorazepam 2 MG/ML VIAL SLOW IVP PRN (11:26)
[2021-09-26] MEDS ORDERED: levETIRAcetam in NS 1,000 MG in Premix Bag 1 BAG IVPB SCH (11:30)
[2021-09-26] MEDS ORDERED: cefTRIAXone\\ROCEPHIN 1 GM VIAL ONE ×2 (11:32→11:59)
[2021-09-26] MEDS ORDERED: levETIRAcetam in NS 100 ML ONE (11:59)
[2021-09-26] MEDS ORDERED: Norepinephrine 8 MG/0.9% NS 250 ML ONE (12:27)
[2021-09-26 12:53] LABS: #Eosinphils 0.1 thou/uL (0.0-0.7); #Lymphocytes 1.5 thou/uL (1.20-3.40); #Monocytes 0.8 thou/uL (0.11-0.59); #Neutrophils 16.9 thou/uL (1.40-6.50); %Basophils 0.2 % (0.0-1.0); %Eosinophils 0.3 % (0.0-10.0); %Lymphocytes 7.6 % (21.0-51.0); %Monocytes 4.2 % (0.0-10.0); %Neutrophils 87.7 % (42.0-75.0); Hemoglobin 8.4 g/dL (14.0-18.0); Mean Corpuscular HGB CONC 33.7 g/dL (32.0-36.0); Mean Corpuscular Hemoglobin 31.8 pg (27.0-31.0); Mean Corpuscular Volume 94.5 fL (78.0-98.0); RBC Distribution Width 13.5 % (11.5-14.5); Red Blood Cell (RBC) Count 2.63 mill/uL (4.70-6.10); White Blood Cell (WBC) Count 19.3 thou/uL (4.8-10.8)
[2021-09-26 13:08] LABS: Band 22 % (5-11); Lymphocytes 6 % (21-51); MDiff Complete? YES; Mean Platelet Volume 7.8 fL (7.4-10.4); Monocytes 1 % (0-10); Neutrophil 70 % (42-75); Platelet Count 102 thou/uL (130-400); Polychromasia SLIGHT = 2-3 cells (100X) (0-2/hpf); Reactive Lymphocytes 1 % (0-10)
[2021-09-26] MEDS ORDERED: Fentanyl 100 MCG/2 ML VIAL ONE (14:01)
[2021-09-26] MEDS ORDERED: Succinylcholine 200 MG/10 ml SYRINGE FS ONE (14:29)
[2021-09-26] MEDS ORDERED: Dexamethasone 20 MG/5 ML VIAL ONE (14:29)
[2021-09-26] MEDS ORDERED: ePHEDrine 50 MG/ML VIAL ONE (14:29)
[2021-09-26] MEDS ORDERED: Promethazine HCl 25 MG/ML VIAL IVPB PRN (15:25)
[2021-09-26] MEDS ORDERED: Ondansetron HCl/PF 4 MG/2 ML Vial IVP PRN (15:25)
[2021-09-26] MEDS ORDERED: Promethazine HCl 25 MG/ML VIAL IM PRN (15:25)
[2021-09-26 17:05] LABS: Anion Gap 12 mmol/L (10-20); BUN (Urea Nitrogen) 30 mg/dL (8.4-25.7); Calc. Creatinine Clearance 0 mL/min (70-130); Carbon Dioxide 16 mmol/L (22-29); Chloride 114 mmol/L (98-107); Glucose 179 mg/dL (70-105); Potassium 5.9 mmol/L (3.5-5.1); Sodium 136 mmol/L (136-145)
[2021-09-26] MEDS ORDERED: Insulin Regular 300 UNITS/3 ML VIAL IVP SCH (17:45)
[2021-09-26] MEDS ORDERED: Furosemide 40 MG/4 ML VIAL SLOW IVP SCH (17:45)
[2021-09-26] MEDS ORDERED: Albuterol Sulfate 2.5 mg/3 ml Neb NEB SCH (17:45)
[2021-09-26] MEDS ORDERED: Dextrose 50% Abboject 50 ML SYRINGE SLOW IVP SCH (17:45)
[2021-09-26 18:50] LABS: Hemoglobin 9.2 g/dL (14.0-18.0); Mean Corpuscular HGB CONC 33.9 g/dL (32.0-36.0); Mean Corpuscular Hemoglobin 31.1 pg (27.0-31.0); Mean Corpuscular Volume 91.6 fL (78.0-98.0); Mean Platelet Volume 8.3 fL (7.4-10.4); Platelet Count 60 thou/uL (130-400); RBC Distribution Width 14.8 % (11.5-14.5); Red Blood Cell (RBC) Count 2.97 mill/uL (4.70-6.10); White Blood Cell (WBC) Count 16.8 thou/uL (4.8-10.8)
[2021-09-26] MEDS ORDERED: Ondansetron ODT 4 MG TAB PO PRN (18:54)
[2021-09-26] MEDS ORDERED: Lorazepam 2 MG/ML VIAL IM PRN (18:54)
[2021-09-26] MEDS ORDERED: Lorazepam 1 MG TAB PO PRN (18:54)
[2021-09-26] MEDS ORDERED: Electrolyte Replacement Protocol 1 EACH FS SCH (19:00)
[2021-09-26] MEDS ORDERED: Multivit, Therapeutic 1 TAB PO SCH (20:00)
[2021-09-26] MEDS ORDERED: Folic Acid 1 MG TAB PO SCH (20:00)
[2021-09-26 20:20] VITALS: BMI 38.0
[2021-09-26] MEDS: Lorazepam 1 MG TAB PO SCH (20:43)
[2021-09-26] MEDS: levETIRAcetam in NS 500 MG in Premix Bag 1 BAG IVPB SCH (20:43)
[2021-09-26] MEDS: Sodium Chloride 0.9% 1,000 ML IV SCH (20:55)
[2021-09-26] MEDS: cefTRIAXone\\ROCEPHIN 1 GM in Sodium Chloride 0.9% 100 ML IVPB SCH (20:55)
[2021-09-26] MEDS: Thiamine HCl 200 MG/2 ML VIAL SLOW IVP SCH (21:04)
[2021-09-26 23:48] LABS: SARS-CoV-2 PCR by NAA Not Detected (NotDetected)
[2021-09-27] MEDS: Sodium Chloride 0.9% 1,000 ML IV SCH ×4 (00:02→20:56)
[2021-09-27] MEDS: Pantoprazole 80 MG in Sodium Chloride 0.9% 100 ML IVPB SCH ×2 (00:02→10:53)
[2021-09-27] MEDS: Octreotide Acetate 1,250 MCG in Sodium Chloride 0.9% 250 ML 250 ML IVPB SCH ×2 (00:39→14:30)
[2021-09-27] MEDS: Lorazepam 1 MG TAB PO SCH ×4 (01:10→17:52)
[2021-09-27 02:40] LABS: Mean Corpuscular HGB CONC 34.3 g/dL (32.0-36.0); Mean Corpuscular Hemoglobin 31.7 pg (27.0-31.0); Mean Corpuscular Volume 92.5 fL (78.0-98.0); Mean Platelet Volume 8.3 fL (7.4-10.4); Platelet Count 53 thou/uL (130-400); RBC Distribution Width 15.7 % (11.5-14.5); Red Blood Cell (RBC) Count 2.84 mill/uL (4.70-6.10); White Blood Cell (WBC) Count 15.4 thou/uL (4.8-10.8)
[2021-09-27 02:41] LABS: INR-International Normal Ratio 1.7; Prothrombin Time 20.1 sec (12.0-14.7)
[2021-09-27 02:42] LABS: PTT 38.5 sec (22.9-36.1)
[2021-09-27 03:20] LABS: ALT (SGPT) 23 U/L (8-55); AST (SGOT) 51 U/L (5-34); Albumin 2.1 g/dL (3.5-5.0); Alkaline Phosphatase 85 U/L (40-110); Anion Gap 15 mmol/L (10-20); BUN (Urea Nitrogen) 36 mg/dL (8.4-25.7); Bilirubin, Total 6.1 mg/dL (0.2-1.2); Calc. Creatinine Clearance 84 mL/min (70-130); Calcium 6.7 mg/dL (7.8-10.44); Carbon Dioxide 14 mmol/L (22-29); Chloride 115 mmol/L (98-107); Globulin 2.6 g/dL (2.4-3.5); Glucose 216 mg/dL (70-105); Magnesium 1.2 mg/dL (1.6-2.6); Potassium 4.1 mmol/L (3.5-5.1); Protein, Total 4.7 g/dL (6.0-8.3); Sodium 140 mmol/L (136-145)
[2021-09-27] MEDS: Lorazepam 2 MG/ML VIAL SLOW IVP SCH ×2 (03:43→04:32)
[2021-09-27] MEDS ORDERED: Magnesium 2 GM/50 ML 2 GM in Premix Bag 1 BAG IVPB SCH (06:30)
[2021-09-27] MEDS: levETIRAcetam in NS 500 MG in Premix Bag 1 BAG IVPB SCH ×2 (08:27→20:55)
[2021-09-27] MEDS: Folic Acid 1 MG TAB PO SCH (08:28)
[2021-09-27] MEDS: Multivit, Therapeutic 1 TAB PO SCH (08:28)
[2021-09-27] MEDS ORDERED: FLU VACC QS2021-22(6MOS UP)/PF 60 MCG/0.5 ML SYRINGE IM ONE (09:00)
[2021-09-27] MEDS: cefTRIAXone\\ROCEPHIN 1 GM in Sodium Chloride 0.9% 100 ML IVPB SCH (11:57)
[2021-09-27] MEDS ORDERED: Lorazepam 1 MG TAB PO PRN (18:54)
[2021-09-27 20:22] LABS: Hemoglobin 8.9 g/dL (14.0-18.0); Mean Corpuscular HGB CONC 33.7 g/dL (32.0-36.0); Mean Corpuscular Hemoglobin 31.2 pg (27.0-31.0); Mean Corpuscular Volume 92.6 fL (78.0-98.0); Platelet Count 52 thou/uL (130-400); RBC Distribution Width 15.9 % (11.5-14.5); Red Blood Cell (RBC) Count 2.84 mill/uL (4.70-6.10)
[2021-09-27] MEDS: Thiamine HCl 200 MG/2 ML VIAL SLOW IVP SCH (20:57)
[2021-09-28] MEDS: Lorazepam 1 MG TAB PO SCH ×2 (01:51→09:56)
[2021-09-28 04:04] LABS: INR-International Normal Ratio 1.8
[2021-09-28 04:05] LABS: PTT 36.7 sec (22.9-36.1)
[2021-09-28 04:22] LABS: ALT (SGPT) 24 U/L (8-55); AST (SGOT) 45 U/L (5-34); Albumin 2.1 g/dL (3.5-5.0); Alkaline Phosphatase 73 U/L (40-110); Anion Gap 11 mmol/L (10-20); BUN (Urea Nitrogen) 36 mg/dL (8.4-25.7); Bilirubin, Total 4.2 mg/dL (0.2-1.2); Calc. Creatinine Clearance 101 mL/min (70-130); Calcium 6.9 mg/dL (7.8-10.44); Carbon Dioxide 19 mmol/L (22-29); Chloride 119 mmol/L (98-107); Globulin 2.4 g/dL (2.4-3.5); Glucose 144 mg/dL (70-105); Magnesium 1.8 mg/dL (1.6-2.6); Potassium 3.7 mmol/L (3.5-5.1); Protein, Total 4.5 g/dL (6.0-8.3); Sodium 145 mmol/L (136-145)
[2021-09-28] MEDS: Sodium Chloride 0.9% 1,000 ML IV SCH ×4 (04:24→22:02)
[2021-09-28] MEDS ORDERED: Magnesium 2 GM/50 ML 2 GM in Premix Bag 1 BAG IVPB SCH (07:00)
[2021-09-28 07:25] LABS: #Lymphocytes 0.8 thou/uL (1.20-3.40); #Monocytes 0.6 thou/uL (0.11-0.59); #Neutrophils 12.3 thou/uL (1.40-6.50); %Basophils 0.2 % (0.0-1.0); %Eosinophils 0.1 % (0.0-10.0); %Lymphocytes 5.5 % (21.0-51.0); %Monocytes 4.2 % (0.0-10.0); Hemoglobin 8.7 g/dL (14.0-18.0); Mean Corpuscular Hemoglobin 30.9 pg (27.0-31.0); Mean Corpuscular Volume 93.7 fL (78.0-98.0); Mean Platelet Volume 8.5 fL (7.4-10.4); Platelet Count 62 thou/uL (130-400); RBC Distribution Width 16.2 % (11.5-14.5); Red Blood Cell (RBC) Count 2.81 mill/uL (4.70-6.10); White Blood Cell (WBC) Count 13.7 thou/uL (4.8-10.8)
[2021-09-28] MEDS: Pantoprazole 80 MG in Sodium Chloride 0.9% 100 ML IVPB SCH (07:54)
[2021-09-28] MEDS: Folic Acid 1 MG TAB PO SCH (09:56)
[2021-09-28] MEDS: Multivit, Therapeutic 1 TAB PO SCH (09:58)
[2021-09-28] MEDS: cefTRIAXone\\ROCEPHIN 1 GM in Sodium Chloride 0.9% 100 ML IVPB SCH (10:02)
[2021-09-28] MEDS ORDERED: Lorazepam 2 MG/ML VIAL SLOW IVP PRN (10:35)
[2021-09-28] MEDS ORDERED: Pantoprazole 80 MG, Admixture Fee 1 EACH in Sodium Chloride 0.9% 100 ML IVPB SCH (10:45)
[2021-09-28] MEDS: levETIRAcetam in NS 500 MG in Premix Bag 1 BAG IVPB SCH ×2 (13:02→19:56)
[2021-09-28] MEDS: Lorazepam 2 MG/ML VIAL SLOW IVP SCH ×2 (13:03→17:54)
[2021-09-28] MEDS: Octreotide Acetate 1,250 MCG in Sodium Chloride 0.9% 250 ML 250 ML IVPB SCH (17:54)
[2021-09-28] MEDS ORDERED: Lorazepam 1 MG TAB PO PRN (18:54)
[2021-09-28] MEDS ORDERED: Lorazepam 0.5 MG TAB PO SCH (19:00)
[2021-09-28] MEDS: Pantoprazole 40 MG VIAL IVP SCH (19:57)
[2021-09-28] MEDS: Rifaximin 550 MG TAB PO SCH (19:57)
[2021-09-28] MEDS: Thiamine HCl 200 MG/2 ML VIAL SLOW IVP SCH (19:59)
[2021-09-29] MEDS: Lorazepam 2 MG/ML VIAL SLOW IVP SCH ×3 (03:52→23:57)
[2021-09-29 03:53] LABS: #Lymphocytes 0.7 thou/uL (1.20-3.40); #Monocytes 0.4 thou/uL (0.11-0.59); %Basophils 0.1 % (0.0-1.0); %Eosinophils 0.9 % (0.0-10.0); %Lymphocytes 13.3 % (21.0-51.0); %Monocytes 7.7 % (0.0-10.0); %Neutrophils 78.1 % (42.0-75.0); Hemoglobin 7.4 g/dL (14.0-18.0); Mean Corpuscular HGB CONC 33.6 g/dL (32.0-36.0); Mean Corpuscular Hemoglobin 31.7 pg (27.0-31.0); Mean Corpuscular Volume 94.3 fL (78.0-98.0); Mean Platelet Volume 7.9 fL (7.4-10.4); Platelet Count 44 thou/uL (130-400); RBC Distribution Width 16.3 % (11.5-14.5); Red Blood Cell (RBC) Count 2.33 mill/uL (4.70-6.10); White Blood Cell (WBC) Count 5.1 thou/uL (4.8-10.8)
[2021-09-29 03:59] LABS: INR-International Normal Ratio 1.7; Prothrombin Time 20.1 sec (12.0-14.7)
[2021-09-29 04:00] LABS: PTT 37.2 sec (22.9-36.1)
[2021-09-29 04:02] LABS: ALT (SGPT) 26 U/L (8-55); AST (SGOT) 47 U/L (5-34); Albumin 1.9 g/dL (3.5-5.0); Alkaline Phosphatase 70 U/L (40-110); BUN (Urea Nitrogen) 30 mg/dL (8.4-25.7); Calc. Creatinine Clearance 102 mL/min (70-130); Calcium 6.8 mg/dL (7.8-10.44); Carbon Dioxide 16 mmol/L (22-29); Chloride 119 mmol/L (98-107); Globulin 2.2 g/dL (2.4-3.5); Glucose 133 mg/dL (70-105); Magnesium 1.9 mg/dL (1.6-2.6); Potassium 3.5 mmol/L (3.5-5.1); Protein, Total 4.1 g/dL (6.0-8.3); Sodium 143 mmol/L (136-145)
[2021-09-29] MEDS: Sodium Chloride 0.9% 1,000 ML IV SCH ×2 (05:11→23:58)
[2021-09-29] MEDS: Octreotide Acetate 1,250 MCG in Sodium Chloride 0.9% 250 ML 250 ML IVPB SCH (05:11)
[2021-09-29] MEDS ORDERED: Magnesium 2 GM/50 ML 2 GM in Premix Bag 1 BAG IVPB SCH (06:30)
[2021-09-29] MEDS: Potassium Chloride 10 MEQ in Premix Bag 1 BAG IVPB SCH ×4 (07:51→14:28)
[2021-09-29] MEDS: Folic Acid 1 MG TAB PO SCH (08:04)
[2021-09-29] MEDS: Rifaximin 550 MG TAB PO SCH ×2 (08:04→20:54)
[2021-09-29] MEDS: Multivit, Therapeutic 1 TAB PO SCH (08:05)
[2021-09-29] MEDS: Pantoprazole 40 MG VIAL IVP SCH ×2 (08:07→20:53)
[2021-09-29] MEDS: levETIRAcetam in NS 500 MG in Premix Bag 1 BAG IVPB SCH ×2 (08:10→20:53)
[2021-09-29] MEDS: cefTRIAXone\\ROCEPHIN 1 GM in Sodium Chloride 0.9% 100 ML IVPB SCH (12:16)
[2021-09-29 14:01] LABS: Anion Gap 12 mmol/L (10-20)
[2021-09-29 17:41] LABS: Potassium 3.6 mmol/L (3.5-5.1)
[2021-09-29] MEDS ORDERED: Lorazepam 0.5 MG TAB PO PRN (18:54)
[2021-09-29] MEDS: Thiamine 100 MG TAB PO SCH (20:56)
[2021-09-30] MEDS: Multivit, Therapeutic 1 TAB PO SCH (08:25)
[2021-09-30] MEDS: Nadolol 40 MG TAB PO SCH (08:25)
[2021-09-30] MEDS: Folic Acid 1 MG TAB PO SCH (08:25)
[2021-09-30] MEDS: Rifaximin 550 MG TAB PO SCH ×2 (08:25→20:37)
[2021-09-30] MEDS: Pantoprazole 40 MG VIAL IVP SCH ×2 (08:25→20:38)
[2021-09-30] MEDS: levETIRAcetam in NS 500 MG in Premix Bag 1 BAG IVPB SCH ×2 (08:39→20:37)
[2021-09-30] MEDS: cefTRIAXone\\ROCEPHIN 1 GM in Sodium Chloride 0.9% 100 ML IVPB SCH (11:30)
[2021-09-30] MEDS ORDERED: Iron, Sodium Ferric Gluconate 250 MG in Sodium Chloride 0.9% 250 ML 250 ML IVPB SCH (15:45)
[2021-09-30] MEDS: Sodium Chloride 0.9% 1,000 ML IV SCH (18:27)
[2021-09-30 18:53] LABS: Hemoglobin 9.4 g/dL (14.0-18.0); Mean Corpuscular HGB CONC 31.6 g/dL (32.0-36.0); Mean Corpuscular Hemoglobin 31.7 pg (27.0-31.0); Mean Platelet Volume 9.1 fL (7.4-10.4); Platelet Count 81 thou/uL (130-400); RBC Distribution Width 16.8 % (11.5-14.5); Red Blood Cell (RBC) Count 2.97 mill/uL (4.70-6.10)
[2021-09-30 19:11] LABS: ALT (SGPT) 32 U/L (8-55); AST (SGOT) 54 U/L (5-34); Albumin 2.2 g/dL (3.5-5.0); Alkaline Phosphatase 136 U/L (40-110); Anion Gap 9 mmol/L (10-20); BUN (Urea Nitrogen) 14 mg/dL (8.4-25.7); Bilirubin, Total 5.7 mg/dL (0.2-1.2); Calc. Creatinine Clearance 94 mL/min (70-130); Calcium 6.8 mg/dL (7.8-10.44); Carbon Dioxide 17 mmol/L (22-29); Chloride 114 mmol/L (98-107); Globulin 2.7 g/dL (2.4-3.5); Glucose 138 mg/dL (70-105); Potassium 3.4 mmol/L (3.5-5.1); Protein, Total 4.9 g/dL (6.0-8.3); Sodium 137 mmol/L (136-145)
[2021-09-30 19:19] LABS: Anisocytosis SLIGHT = 6-15 cells (100X) (0-5/hpf); Band 2 % (5-11); Eosinophils 1 % (0-10); Lymphocytes 16 % (21-51); MDiff Complete? YES; Macrocytosis SLIGHT = 6-15 cells (100X) (0-5/hpf); Monocytes 15 % (0-10); Neutrophil 65 % (42-75); Platelet Morphology Comment Appears Decreased; Polychromasia MODERATE = 3-4 cells (100X) (0-2/hpf); White Blood Cell (WBC) Count 9.8 thou/uL (4.8-10.8)
[2021-09-30] MEDS: Thiamine 100 MG TAB PO SCH (20:37)
[2021-09-30] MEDS ORDERED: Potassium Chloride 20 MEQ TAB PO SCH (23:30)
[2021-10-01] MEDS: levETIRAcetam in NS 500 MG in Premix Bag 1 BAG IVPB SCH ×2 (09:22→22:52)
[2021-10-01] MEDS: Nadolol 40 MG TAB PO SCH (09:22)
[2021-10-01] MEDS: Folic Acid 1 MG TAB PO SCH (09:23)
[2021-10-01] MEDS: Multivit, Therapeutic 1 TAB PO SCH (09:23)
[2021-10-01] MEDS: Pantoprazole 40 MG VIAL IVP SCH ×2 (09:23→22:52)
[2021-10-01] MEDS: Rifaximin 550 MG TAB PO SCH ×2 (09:27→22:52)
[2021-10-01] MEDS: cefTRIAXone\\ROCEPHIN 1 GM in Sodium Chloride 0.9% 100 ML IVPB SCH (11:29)
[2021-10-01] MEDS: Thiamine 100 MG TAB PO SCH (22:52)
[2021-10-02 02:55] LABS: Hemoglobin 8.8 g/dL (14.0-18.0); Platelet Count 119 thou/uL (130-400)
[2021-10-02] MEDS: Multivit, Therapeutic 1 TAB PO SCH (09:13)
[2021-10-02] MEDS: levETIRAcetam in NS 500 MG in Premix Bag 1 BAG IVPB SCH (09:13)
[2021-10-02] MEDS: Pantoprazole 40 MG VIAL IVP SCH (09:13)
[2021-10-02] MEDS: Folic Acid 1 MG TAB PO SCH (09:13)
[2021-10-02] MEDS: Nadolol 40 MG TAB PO SCH (09:13)
[2021-10-02] MEDS: Rifaximin 550 MG TAB PO SCH (09:13)
[2021-10-02] MEDS: cefTRIAXone\\ROCEPHIN 1 GM in Sodium Chloride 0.9% 100 ML IVPB SCH (11:29)
[2021-10-02 11:58] VITALS: TEMP 98.9
[2021-10-02 16:15] VITALS: BP 134/77
== END 2021-10-02 17:35 | disposition home or self-care (01) | DRG 432 ==
LOC: ERS 09:51 → ERHOLD 10:55 → SURG A 14:39 → CCU 17:18 → SURG A 09-29 18:48
PROVIDERS: ADMIT Internal Medicine; ATTEND Family Medicine
PROC: 06L38CZ Occlusion of Esophageal Vein with Extraluminal Device, Via Natural or Artificial Opening Endoscopic (ICD-10-PCS; principal; 2021-09-26)
PROC: 30233N1 Transfusion of Nonautologous Red Blood Cells into Peripheral Vein, Percutaneous Approach (ICD-10-PCS; 2021-09-26)
PROC: 30233K1 Transfusion of Nonautologous Frozen Plasma into Peripheral Vein, Percutaneous Approach (ICD-10-PCS; 2021-09-26)
PROC: 3E033XZ Introduction of Vasopressor into Peripheral Vein, Percutaneous Approach (ICD-10-PCS; 2021-09-26)
DX: K70.31 Alcoholic cirrhosis of liver with ascites (principal); I85.11 Secondary esophageal varices with bleeding; I81 Portal vein thrombosis; R57.1 Hypovolemic shock; D62 Acute posthemorrhagic anemia; N17.9 Acute kidney failure, unspecified; E87.2 Acidosis; F10.139 Alcohol abuse with withdrawal, unspecified; N18.30 Chronic kidney disease, stage 3 unspecified; D50.9 Iron deficiency anemia, unspecified; I10 Essential (primary) hypertension; E87.5 Hyperkalemia; E11.9 Type 2 diabetes mellitus without complications; K76.89 Other specified diseases of liver; Z20.822 Contact with and (suspected) exposure to COVID-19; F10.10 Alcohol abuse, uncomplicated; E87.6 Hypokalemia; K72.90 Hepatic failure, unspecified without coma; Z79.899 Other long term (current) drug therapy; Z79.84 Long term (current) use of oral hypoglycemic drugs
CPT/HCPCS: 36415; 36416; 36430; 71045; 74183; 76705; 80053; 82105; 82140; 82550; 82553; 82607; 82746; 83605; 83735; 84484; 85014; 85018; 85025; 85027; 85049; 85610; 85730; 86850; 86900; 86901; 87040; 93005; 94640; 94760; C9113; J0696; J1100; J1815; J1940; J1953; J2060; J2354; J2405; J2916; J3010; J3411; J3475; J3480; J3490; J7050; J7611; P9016; P9059; U0003; U0005